=== PATIENT | female | born 1975 | race Caucasian/White ===

== ENCOUNTER 2016-11-17 14:17 | Day surgery (SDC) | payer OTHER ==
[~2016-11-17 14:17] MED LIST: DIPRIVAN 200 MG/20 ML IV ONE; Kenalog-40 IM ONE; Lactated Ringers 1,000 ML IV ONE; Sensorcaine 0.25% 10 ML IJ ONE
[2016-11-17] MEDS ORDERED: XYLOCAINE 1% HCL 20 ML MDV ONE (16:33)
--- NOTE | 2016-11-17 19:05 | XRAY ---
Indication: Right SI injection. Intraoperative fluoroscopy was provided for 22 seconds. Single digital spot image submitted for interpretation demonstrates posterior spinal needle with the tip projecting over the upper right SI joint. Small amount of contrast injected for needle tip placement. Correlate with intraoperative findings/report.
--- NOTE | 2016-11-18 08:42 | XRAY ---
22 seconds fluoroscopy time in surgery for right SI injection.
== END 2016-11-17 17:15 | disposition home or self-care (01) ==
LOC: SDC-PAIN 14:17
PROVIDERS: ATTEND Pain Medicine Interventional Pain Medicine
DX: M46.1 Sacroiliitis, not elsewhere classified (principal); M45.5 Ankylosing spondylitis of thoracolumbar region; M25.559 Pain in unspecified hip; Z79.891 Long term (current) use of opiate analgesic
CPT/HCPCS: 01992; 27096; 72020; 77003; J2704; J3301

== ENCOUNTER 2016-12-21 18:28 | Emergency (ER) | payer OTHER ==
[2016-12-21] MEDS ORDERED: Sodium Chloride 0.9% 1000 ML 1,000 ML IV STA (19:10)
--- NOTE | 2016-12-21 19:16 | ERPHSYRPT ---
- History of Present Illness Time Seen by Provider: 12/21/16 19:00 Historian: patient Exam Limitations: clinical condition Patient Subjective Stated Complaint: patient has hx of ovarian cysts, having abdominal pain accross abdomen Triage Nursing Assessment: patient alert and oriented x3, bowel sounds x4, and abdominal pain accross abdomin , called OB and she advised patietn come in to ER Physician History: PATIENT WITH HISTORY OR OVARIAN CYST COMPLAINS OF GENERALIZED ABDOMINAL CRAMPS FOR 1 MONTH ASSOCIATED WITH NAUSEA. DENIES EMESIS, VAGINAL DISCHARGE OR BLEEDING OR DIARRHEA. HAS NO RELIEF WITH NORCO 5/325 EVERY 6 HOURS. AWAITING ENDOMETRIAL BIOPSY PER EDGER MACHINE OPERATOR. Timing/Duration: week(s) Activities at Onset: none Quality: cramping Abdominal Pain Onset Location: generalized abdomen Pain Radiation: no radiation Severity of Pain-Max: moderate Severity of Pain-Current: moderate Modifying Factors: Improves With: other (NAUSEA) Associated Symptoms: nausea Previous symptoms: same symptoms as today Allergies/Adverse Reactions: hydroxychloroquine sulfate [From Plaquenil] Allergy (Intermediate, Verified 10:27) Rash methotrexate Allergy (Intermediate, Verified 03/17/16 10:27) Rash tramadol Allergy (Intermediate, Verified 03/17/16 10:27) Hives Home Medications: Omeprazole 20 MG [Prilosec 20 mg] 40 mg PO BID 02/29/16 [History] Adalimumab [Humira] 40 mg SQ .2X/WEEK 07/27/16 [History] Hydrocodone Bit/Acetaminophen [Souris 5/325Mg] 1 each PO TIDPRN PRN 07/27/16 [ History] Linaclotide [Linzess] 145 mcg PO .PRN 07/27/16 [History] Hx Tetanus, Diphtheria Vaccination/Date Given: Yes Hx Influenza Vaccination/Date Given: No Hx Pneumococcal Vaccination/Date Given: No Immunizations Up to Date: Yes - Review of Systems Constitutional: No Fever, No Chills Eyes: No Symptoms Ears, Nose, & Throat: No Symptoms Respiratory: No Symptoms, No Cough, No Dyspnea Cardiac: No Chest Pain, No Edema, No Syncope Abdominal/Gastrointestinal: Abdominal Pain, Nausea, No Vomiting, No Diarrhea Genitourinary Symptoms: No Symptoms, No Dysuria Musculoskeletal: No Symptoms, No Back Pain, No Neck Pain Skin: No Symptoms, No Rash Neurological: No Dizziness, No Focal Weakness, No Sensory Changes Psychological: No Symptoms Endocrine: No Symptoms All Other Systems: Reviewed and Negative - Past Medical History Pertinent Past Medical History: Yes Neurological History: Migraines Cardiac History: Other Respiratory History: Asthma Endocrine Medical History: No Pertinent History Musculoskeletal History: Rheumatoid Arthritis GI Medical History: Diverticulitis Other Medical History: HEART MURMUR - Past Surgical History Past Surgical History: Yes Gastrointestinal: Cholecystectomy Female Surgical History: Tubal Ligation Other Surgical History: ECTOPIC PREG - Social History Smoking Status: Never smoker Exposure to second hand smoke: No Drug Use: none Patient Lives Alone: No - Nursing Vital Signs Nursing Vital Signs: Initial Vital Signs Temperature 97.7 F Temperature Source Oral Pulse Rate 68 Respiratory Rate 16 Blood Pressure [Right Arm] 119/48 Pain Intensity 7 - Physical Exam General Appearance: no apparent distress, alert Eye Exam: PERRL/EOMI, eyes nml inspection Ears, Nose, Throat Exam: normal ENT inspection, pharynx normal, moist mucous membranes Neck Exam: normal inspection, non-tender, supple, full range of motion Respiratory Exam: normal breath sounds, lungs clear, No respiratory distress Cardiovascular Exam: regular rate/rhythm, normal heart sounds Gastrointestinal/Abdomen Exam: soft, normal bowel sounds, tenderness (MINIMAL PERIUMBILICAL TENDERNESS, SUPRAPUBIC TENDERNESS), No mass Back Exam: normal inspection, normal range of motion, No CVA tenderness, No vertebral tenderness Extremity Exam: normal inspection, normal range of motion, pelvis stable Neurologic Exam: alert, oriented x 3, cooperative, normal mood/affect, nml cerebellar function, sensation nml, No motor deficits Skin Exam: normal color, warm, dry SpO2 Interpretation: normal SpO2: 98 Oxygen Delivery: Room Air - CT Exams Abdomen/Pelvis CT Interpretation: Tele-radiologist Report (THERE IS A 3.3CM RIGHT OVARIAN CYST , NO FREE AIR, NO FLUID COLLECTION) Ordered Tests: Active Orders 24 hr Category Date Time Status IV Insertion STAT Care 12/21/16 19:10 Active ABDOMEN AND PELVIS W CONTRAST [CT] Stat Exams 12/21/16 19:11 Taken AMYLASE Stat Lab 12/21/16 19:23 Completed BMP Stat Lab 12/21/16 19:23 Completed CBC W DIFF Stat Lab 12/21/16 19:23 Completed LIPASE Stat Lab 12/21/16 19:23 Completed Urine Triage Profile Stat Lab 12/21/16 19:10 Ordered Medication Summary Discontinued Medications Generic Name Dose Route Start Last Admin Trade Name Jody PRN Reason Stop Dose Admin Sodium Chloride 1,000 mls @ 500 mls/hr 12/21/16 19:10 12/21/16 19:29 Sodium Chloride 0.9% 1000 Ml IV 12/21/16 21:09 500 mls/hr .Q2H STA Administration Sodium Chloride Confirm 12/21/16 19:20 Sodium Chloride 0.9% 1000 Ml Administered 12/21/16 19:21 Dose 1,000 mls @ ud .ROUTE .STK-MED ONE Ketorolac Tromethamine 30 mg 12/21/16 20:13 12/21/16 20:16 Toradol 30 Mg Injection IV 12/21/16 20:14 30 mg STAT ONE Administration Ketorolac Tromethamine Confirm 12/21/16 20:16 Toradol 30 Mg Injection Administered 12/21/16 20:17 Dose 30 mg .ROUTE .STK-MED ONE Ondansetron HCl 4 mg 12/21/16 20:13 12/21/16 20:17 Zofran 4 Mg/2 Ml Vial IV 12/21/16 20:14 4 mg STAT ONE Administration Ondansetron HCl Confirm 12/21/16 20:15 Zofran 4 Mg/2 Ml Vial Administered 12/21/16 20:16 Dose 4 mg .ROUTE .STK-MED ONE Lab/Rad Data: Laboratory Result Diagrams 12/21/16 19:23 12/21/16 19:23 Laboratory Results 12/21/16 12/21/16 12/21/16 Range/Units 19:23 19:23 19:23 WBC 7.7 (4.0-10.5) K/mm3 RBC 4.05 L (4.1-5.4) M/mm3 Hgb 12.7 (12.0-16.0) gm/dl Hct 38.3 (35-47) % MCV 94.6 (78-100) fl MCH 31.3 (26-32) pg MCHC 33.2 (32-36) g/dl RDW 12.9 (11.5-14.0) % Plt Count 274 (150-450) K/mm3 MPV 9.5 (6-9.5) fl Gran % 52.9 (36.0-66.0) % Lymphocytes % 35.3 (24.0-44.0) % Monocytes % 7.4 (0.0-12.0) % Eosinophils % 4.0 (0.00-5.0) % Basophils % 0.4 (0.0-0.4) % Basophils # 0.03 (0-0.4) Sodium 143 (136-145) mEq/L Potassium 3.8 (3.5-5.1) mEq/L Chloride 107 (98-107) mEq/L Carbon Dioxide 28.3 (21-32) mEq/L Anion Gap 11.2 (5-15) MEQ/L BUN 13 (9-20) mg/dL Creatinine 0.78 (0.55-1.30) mg/dl Estimated GFR > 60 ML/MIN Glucose 112 H (70-110) MG/DL Calcium 9.0 (8.5-10.1) mg/dL Amylase 29 (25-115) U/L Lipase 94 (73-393) U/L - Progress Progress: pain not gone completely Counseled pt/family regarding: lab results, diagnosis, need for follow-up, rad results - Departure Time of Disposition: 21:26 Departure Disposition: Home Clinical Impression: RIGHT OVARIAN CYST Condition: Stable Critical Care Time: No Additional Instructions: CONTINUE NORCO FOR PAIN DIRECTED AND ZOFRAN 4MG EVERY 4 HOURS FOR NAUSEA NEEDED. FOLLOWUP WITH YOUR EDGER MACHINE OPERATOR SCHEDULED.
[2016-12-21] MEDS ORDERED: Sodium Chloride 0.9% 1000 ML 1,000 ML ONE (19:20)
[2016-12-21 19:39] LABS: BASOPHIL % 0.4 % (0.0-0.4); Granulocytes % 52.9 % (36.0-66.0); Lymphocytes % 35.3 % (24.0-44.0); Mean Cell Volume 94.6 fl (78-100); Mean Corpuscular Hemoglobin 31.3 pg (26-32); Mean Platelet Volume 9.5 fl (6-9.5); Monocytes % 7.4 % (0.0-12.0); Platelet Count 274 K/mm3 (150-450); Red Blood Count 4.05 M/mm3 (4.1-5.4); Red Cell Distribution Width 12.9 % (11.5-14.0); White Blood Count 7.7 K/mm3 (4.0-10.5)
[2016-12-21 20:01] LABS: ANION GAP 11.2 MEQ/L (5-15); BLOOD UREA NITROGEN 13 mg/dL (9-20); CHLORIDE 107 mEq/L (98-107); Carbon Dioxide 28.3 mEq/L (21-32); Glucose 112 MG/DL (70-110); Potassium 3.8 mEq/L (3.5-5.1); SODIUM 143 mEq/L (136-145)
[2016-12-21 20:03] LABS: LIPASE 94 U/L (73-393)
[2016-12-21] MEDS ORDERED: Zofran 4 MG/2 ML VIAL IV ONE (20:13)
[2016-12-21] MEDS ORDERED: TORAdol 30 mg Injection IV ONE (20:13)
[2016-12-21] MEDS ORDERED: Zofran 4 MG/2 ML VIAL ONE (20:15)
[2016-12-21] MEDS ORDERED: TORAdol 30 mg Injection ONE (20:16)
[2016-12-21 21:29] VITALS: O2SAT 98
[2016-12-21 22:17] VITALS: BP 140/84; PULSE 60
--- NOTE | 2016-12-22 12:29 | XRAY ---
Exam: CT of the abdomen and pelvis with IV contrast from 12/21/2016. Comparison: None. Indication: Generalized mid abdominal pain, history of prior cholecystectomy and tubal ligation, past history of diverticulitis and ovarian cysts. Technique: Post-IV contrast axial images were obtained through the abdomen and pelvis during automated injection of 80 ML's of Isovue 370 contrast material. Reconstructed coronal and sagittal images were created and reviewed. Findings: The lung bases reveal a tiny 3 mm nodular density at the lateral right lung base within the mid axillary line on axial image #1. This is nonspecific. In addition, within the posterior lateral left lower lobe a bit more inferiorly, there is a 5 mm in diameter nonspecific soft tissue lung nodule. The remainder of the lung bases appears clear. There is a minimal hiatal hernia. The liver and spleen appear unremarkable. Surgical clips consistent with prior cholecystectomy are seen. No biliary duct distention is seen. The pancreas and adrenal glands appear unremarkable. I cannot exclude a minimal duodenal diverticulum to the right of midline on axial image #28. This is nonspecific. The kidneys reveal no suspicious calcifications, hydronephrosis, or renal mass. The kidneys function well on delayed images. The abdominal aorta appears of normal diameter. No abnormal retroperitoneal or mesenteric lymphadenopathy is seen. No free intraperitoneal air is seen. The anterior abdominal wall reveals no evidence of ventral hernia. I see no bowel distention or bowel wall thickening. Moderate scattered colonic stool is seen. The appendix is not definitely seen within the right lower quadrant. However, I see no secondary findings to suggest acute appendicitis. The pelvis reveals an anteflexed uterus tilted to the right of midline. A 3.5 cm x 2.8 cm right ovarian cyst is seen. The left ovary appears unremarkable. I see no free intraperitoneal fluid or abnormal pelvic lymph nodes. Minimal sigmoid colon diverticulosis without evidence of acute diverticulitis is seen. The urinary bladder appears unremarkable. The skeleton reveals no acute fracture or suspicious bone lesions. Impression: 1. I see a 3.5 cm in diameter right ovarian cyst. No free intraperitoneal fluid is seen. 2. No acute intra-abdominal or pelvic process is seen. 3. Minimal sigmoid colon diverticulosis without evidence of diverticulitis. Moderate scattered colonic stool is seen. 4. Status post cholecystectomy. 5. 5 mm soft tissue nodule at posterior lateral aspect of left lower lobe and 3 mm soft tissue nodule at lateral right lung base within mid axillary line, as described above. These findings are nonspecific. In a low risk individual, the new 2017 [employer] guidelines for pulmonary nodules would suggest no follow-up in a low risk individual because of the nodule size under 6 mm in diameter. It the patient is at increased risk, a follow-up CT of the chest would be advised in 12 months. 6. Minimal hiatal hernia.
== END 2016-12-21 21:55 | disposition home or self-care (01) ==
LOC: ED 18:28
DX: N83.201 Unspecified ovarian cyst, right side (principal); R10.9 Unspecified abdominal pain; R11.0 Nausea; Z79.899 Other long term (current) drug therapy
CPT/HCPCS: 36000; 36415; 74177; 80048; 82150; 83690; 85025; 96360; 96374; 96375; 99284; J1885; J2405

== ENCOUNTER 2017-02-02 14:28 | Emergency (ER) | payer OTHER ==
[2017-02-02] MEDS ORDERED: Zofran 4 MG/2 ML VIAL IV ONE (14:47)
[2017-02-02] MEDS ORDERED: TYLENOL 325 MG PO STA (14:47)
[2017-02-02] MEDS ORDERED: LEVOFLOXACIN 750MG/150ML D5W 750 MG/150 ML BAG IV STA (14:47)
[2017-02-02] MEDS ORDERED: Zofran 4 MG/2 ML VIAL ONE (14:53)
[2017-02-02] MEDS ORDERED: TYLENOL 325 MG ONE (14:53)
[2017-02-02] MEDS ORDERED: LEVOFLOXACIN 750MG/150ML D5W 750 MG/150 ML BAG IV ONE (14:53)
[2017-02-02] MEDS ORDERED: Sodium Chloride 0.9% 1000 ML 1,000 ML ONE (14:53)
[2017-02-02] MEDS ORDERED: Sodium Chloride 0.9% 1000 ML 1,000 ML IV SCH (15:00)
--- NOTE | 2017-02-02 15:14 | XRAY ---
Exam: AP upright portable chest film from 1450 hrs. on 02/02/2017. Comparison: None. Indication: Fever, possible sepsis. Findings: The heart size and contour are normal. The jasmina and mediastinal structures appear unremarkable. The lungs are adequately inflated. There is at least one tiny calcified granuloma within the right midlung field. I see no air space infiltrates, vascular congestion, pneumothorax, or pleural fluid. The visualized bones appear unremarkable. Impression: 1. No infiltrates to suggest focal pneumonia or other acute cardiopulmonary disease is seen.
[2017-02-02 15:21] LABS: BASOPHIL % 0.1 % (0.0-0.4); Eosinophil % 0.6 % (0.00-5.0); Granulocytes % 85.6 % (36.0-66.0); Lymphocytes % 7.1 % (24.0-44.0); Mean Cell Volume 91.8 fl (78-100); Mean Corpuscular Hemoglobin 32.2 pg (26-32); Mean Platelet Volume 9.3 fl (6-9.5); Monocytes % 6.6 % (0.0-12.0); Platelet Count 184 K/mm3 (150-450); Red Blood Count 4.03 M/mm3 (4.1-5.4); Red Cell Distribution Width 12.6 % (11.5-14.0); White Blood Count 10.7 K/mm3 (4.0-10.5)
[2017-02-02 15:32] LABS: INR 1.14 (0.8-3.0); PROTIME 12.9 SECONDS (9.95-12.35)
[2017-02-02 15:35] LABS: Bilirubin NEGATIVE (NEGATIVE); Blood NEGATIVE Ery/ul (0-5); COMPLETE URINE MICROSCOPIC? NO; Collection Type VOID; Glucose NEGATIVE (NEGATIVE); Leukocyte Esterase NEGATIVE (NEGATIVE)
[2017-02-02 15:50] VITALS: BP 143/75
[2017-02-02 15:50] LABS: ALBUMIN 3.4 g/dL (3.4-5.0); ALKALINE PHOSPHATASE 55 U/L (46-116); BLOOD UREA NITROGEN 11 mg/dL (9-20); CHLORIDE 105 mEq/L (98-107); Carbon Dioxide 21.8 mEq/L (21-32); Glucose 96 MG/DL (70-110); Potassium 3.5 mEq/L (3.5-5.1); SGOT/AST 14 U/L (15-37); SODIUM 137 mEq/L (136-145); Total Protein 6.6 gm/dL (6.4-8.2)
[2017-02-02 16:11] LABS: SGPT/ALT 15 U/L (12-78)
[2017-02-02] MEDS ORDERED: Hydromorphone 1 mg/ml Ampule IV ONE (16:37)
--- NOTE | 2017-02-02 16:37 | ERPHSYRPT ---
- History of Present Illness Time Seen by Provider: 02/02/17 15:00 Historian: patient Exam Limitations: clinical condition Patient Subjective Stated Complaint: PT REPORTS FEVER OF 102.5 LAST NIGHT- STATES SHE ACHES ALL OVER-DENEIS N/V/D-DENIES COUGH-DENIES DIFFICULTY WITH URIANTION OR BOWELS Triage Nursing Assessment: PT PINK FLUSHED WARM ET DRY UPON ARRIVAL-NO COUGH NOTED DURING TRIAGE-LUNGS CLEAR ET EQUAL BILATERALLY-RESP EASY ET NONLABORED- ABD SOFT ET TENDER TO PALP Physician History: PATIENT WITH HISTORY OR RHEUMATOID ARTHRITIS COMPLAINS OF ONSET OF FEVER LAST NIGHT, ASSOCIATED WITH ABDOMINAL CRAMPS. HAS ASSOCIATED FEVER AND NAUSEA. DENIES EMESIS OR DIARRHEA. Timing/Duration: day(s) Activities at Onset: none Abdominal Pain Onset Location: RLQ, LLQ Pain Radiation: no radiation Severity of Pain-Max: moderate Severity of Pain-Current: moderate Associated Symptoms: nausea Previous symptoms: no prior history Allergies/Adverse Reactions: hydroxychloroquine sulfate [From Plaquenil] Allergy (Intermediate, Verified 07/10 14:37) Rash methotrexate Allergy (Intermediate, Verified 02/02/17 14:37) Rash tramadol Allergy (Intermediate, Verified 02/02/17 14:37) Hives ketorolac [From Toradol] Allergy (Verified 02/02/17 14:37) Home Medications: Omeprazole 20 MG [Prilosec 20 mg] 40 mg PO BID 02/29/16 [History] Adalimumab [Humira] 40 mg SQ .2X/WEEK 07/27/16 [History] Linaclotide [Linzess] 145 mcg PO .PRN 07/27/16 [History] Hx Tetanus, Diphtheria Vaccination/Date Given: Yes Hx Influenza Vaccination/Date Given: No Hx Pneumococcal Vaccination/Date Given: No Immunizations Up to Date: Yes - Review of Systems Constitutional: No Fever, No Chills Eyes: No Symptoms Ears, Nose, & Throat: No Symptoms Respiratory: No Symptoms, No Cough, No Dyspnea Cardiac: No Chest Pain, No Edema, No Syncope Abdominal/Gastrointestinal: No Abdominal Pain, No Nausea, No Vomiting, No Diarrhea Genitourinary Symptoms: No Dysuria Musculoskeletal: Joint Pain, Joint Swelling, No Back Pain, No Neck Pain Skin: No Symptoms, No Rash Neurological: No Dizziness, No Focal Weakness, No Sensory Changes Psychological: No Symptoms Endocrine: No Symptoms All Other Systems: Reviewed and Negative - Past Medical History Pertinent Past Medical History: Yes Neurological History: Migraines Cardiac History: Other Respiratory History: Asthma Endocrine Medical History: No Pertinent History Musculoskeletal History: Rheumatoid Arthritis GI Medical History: Diverticulitis Other Medical History: HEART MURMUR - Past Surgical History Past Surgical History: Yes Gastrointestinal: Cholecystectomy Female Surgical History: Tubal Ligation Other Surgical History: ECTOPIC PREG - Social History Smoking Status: Never smoker Exposure to second hand smoke: No Drug Use: none Patient Lives Alone: No - Female History Hx Last Menstrual Period: JANUARY 08 2017 - Nursing Vital Signs Nursing Vital Signs: Initial Vital Signs Temperature 99.2 F Temperature Source Oral Pulse Rate 83 Respiratory Rate 20 Blood Pressure [Right Arm] 143/75 Pain Intensity 7 - Physical Exam SpO2: 98 Oxygen Delivery: Room Air Ordered Tests: Active Orders 24 hr Category Date Time Status Plumbing Manager STAT Care 02/02/17 14:47 Active Clean Catch Urine Specimen STAT Care 02/02/17 14:47 Active EKG-ER Only STAT Care 02/02/17 14:47 Active IV Insertion STAT Care 02/02/17 14:47 Active Oxygen-ED Only NASAL CANNULA 2 lpm Care 02/02/17 14:47 Active Pulse Oximetry (ED) STAT Care 02/02/17 14:47 Active ABDOMEN AND PELVIS W CONTRAST [CT] Stat Exams 02/02/17 15:34 Completed CHEST 1 VIEW (PORTABLE) Stat Exams 02/02/17 14:48 Completed AMYLASE Stat Lab 02/02/17 15:10 Completed BLOOD CULTURE Stat Lab 02/02/17 14:40 Received CBC W DIFF Stat Lab 02/02/17 15:10 Completed CMP Stat Lab 02/02/17 15:10 Completed CULTURE,URINE Stat Lab 02/02/17 15:05 Received HCG,QUALITATIVE URINE Stat Lab 02/02/17 15:05 Completed LIPASE Stat Lab 02/02/17 15:10 Completed Lactic Acid Stat Lab 02/02/17 14:48 Completed PROTIME WITH INR Stat Lab 02/02/17 15:10 Completed UA Stat Lab 02/02/17 15:05 Completed Medication Summary Generic Name Dose Route Start Last Admin Trade Name Freq PRN Reason Stop Dose Admin Sodium Chloride 1,000 mls @ 999 mls/hr 02/02/17 15:00 02/02/17 15:00 Sodium Chloride 0.9% 1000 Ml IV 02/02/17 17:00 999 mls/hr .Q1H1M NEFTALI Administration Discontinued Medications Generic Name Dose Route Start Last Admin Trade Name Jody PRN Reason Stop Dose Admin Acetaminophen 650 mg 02/02/17 14:47 02/02/17 15:02 Tylenol 325 Mg PO 02/02/17 14:48 650 mg STAT STA Administration Acetaminophen Confirm 02/02/17 14:53 Tylenol 325 Mg Administered 02/02/17 14:54 Dose 650 mg .ROUTE .STK-MED ONE Hydromorphone HCl 1 mg 02/02/17 16:37 02/02/17 16:43 Hydromorphone 1 Mg/Ml Ampule IV 02/02/17 16:38 1 mg STAT ONE Administration Hydromorphone HCl Confirm 02/02/17 16:39 Hydromorphone 1 Mg/Ml Ampule Administered 02/02/17 16:40 Dose 1 mg .ROUTE .STK-MED ONE Levofloxacin/Dextrose 750 mg in 150 mls @ 100 mls/hr 02/02/17 14:47 02/02/17 15:02 Levofloxacin 750mg/150ml D5w IV 02/02/17 16:16 100 mls/hr STAT STA Administration Levofloxacin/Dextrose Confirm 02/02/17 14:53 Levofloxacin 750mg/150ml D5w Administered 02/02/17 14:54 Dose 750 mg in 150 mls @ ud IV .STK-MED ONE Ondansetron HCl 4 mg 02/02/17 14:47 02/02/17 15:01 Zofran 4 Mg/2 Ml Vial IV 02/02/17 14:48 4 mg STAT ONE Administration Ondansetron HCl Confirm 02/02/17 14:53 Zofran 4 Mg/2 Ml Vial Administered 02/02/17 14:54 Dose 4 mg .ROUTE .STK-MED ONE Lab/Rad Data: Laboratory Result Diagrams 02/02/17 15:10 02/02/17 15:10 Laboratory Results 02/02/17 02/02/17 02/02/17 Range/Units 15:10 15:10 15:10 WBC (4.0-10.5) K/mm3 RBC (4.1-5.4) M/mm3 Hgb (12.0-16.0) gm/dl Hct (35-47) % MCV (78-100) fl MCH (26-32) pg MCHC (32-36) g/dl RDW (11.5-14.0) % Plt Count (150-450) K/mm3 MPV (6-9.5) fl Gran % (36.0-66.0) % Lymphocytes % (24.0-44.0) % Monocytes % (0.0-12.0) % Eosinophils % (0.00-5.0) % Basophils % (0.0-0.4) % Basophils # (0-0.4) INR 1.14 (0.8-3.0) Sodium (136-145) mEq/L Potassium (3.5-5.1) mEq/L Chloride (98-107) mEq/L Carbon Dioxide (21-32) mEq/L Anion Gap (5-15) MEQ/L BUN (9-20) mg/dL Creatinine (0.55-1.30) mg/dl Estimated GFR ML/MIN Glucose (70-110) MG/DL Lactic Acid (0.4-2.0) Calcium (8.5-10.1) mg/dL Total Bilirubin (0.2-1.0) mg/dL AST (15-37) U/L ALT (12-78) U/L Alkaline Phosphatase (46-116) U/L Serum Total Protein (6.4-8.2) gm/dL Albumin (3.4-5.0) g/dL Amylase 20 L (25-115) U/L Lipase 90 (73-393) U/L Ur Collection Type Urine Color (YELLOW) Urine Appearance (CLEAR) Urine pH (5-6) Ur Specific Rombauer (1.005-1.025) Urine Protein (Negative) Urine Ketones (NEGATIVE) Urine Blood (0-5) Pramod/ul Urine Nitrite (NEGATIVE) Urine Bilirubin (NEGATIVE) Urine Urobilinogen (0-1) mg/dL Ur Leukocyte Esterase (NEGATIVE) Urine Glucose (NEGATIVE) mg/dL Urine HCG, Qual (Negative) Specimen Received 02/02/17 02/02/17 02/02/17 Range/Units 15:10 15:10 15:05 WBC 10.7 H (4.0-10.5) K/mm3 RBC 4.03 L (4.1-5.4) M/mm3 Hgb 13.0 (12.0-16.0) gm/dl Hct 37.0 (35-47) % MCV 91.8 (78-100) fl MCH 32.2 H (26-32) pg MCHC 35.1 (32-36) g/dl RDW 12.6 (11.5-14.0) % Plt Count 184 (150-450) K/mm3 MPV 9.3 (6-9.5) fl Gran % 85.6 H (36.0-66.0) % Lymphocytes % 7.1 L (24.0-44.0) % Monocytes % 6.6 (0.0-12.0) % Eosinophils % 0.6 (0.00-5.0) % Basophils % 0.1 (0.0-0.4) % Basophils # 0.01 (0-0.4) INR (0.8-3.0) Sodium 137 (136-145) mEq/L Potassium 3.5 (3.5-5.1) mEq/L Chloride 105 (98-107) mEq/L Carbon Dioxide 21.8 (21-32) mEq/L Anion Gap 14.0 (5-15) MEQ/L BUN 11 (9-20) mg/dL Creatinine 0.94 (0.55-1.30) mg/dl Estimated GFR > 60 ML/MIN Glucose 96 (70-110) MG/DL Lactic Acid (0.4-2.0) Calcium 8.4 L (8.5-10.1) mg/dL Total Bilirubin 0.90 (0.2-1.0) mg/dL AST 14 L (15-37) U/L ALT 15 (12-78) U/L Alkaline Phosphatase 55 (46-116) U/L Serum Total Protein 6.6 (6.4-8.2) gm/dL Albumin 3.4 (3.4-5.0) g/dL Amylase (25-115) U/L Lipase (73-393) U/L Ur Collection Type VOID Urine Color YELLOW (YELLOW) Urine Appearance CLEAR (CLEAR) Urine pH 7.0 (5-6) Ur Specific Rombauer 1.010 (1.005-1.025) Urine Protein NEGATIVE (Negative) Urine Ketones MODERATE (NEGATIVE) Urine Blood NEGATIVE (0-5) Pramod/ul Urine Nitrite NEGATIVE (NEGATIVE) Urine Bilirubin NEGATIVE (NEGATIVE) Urine Urobilinogen NORMAL (0-1) mg/dL Ur Leukocyte Esterase NEGATIVE (NEGATIVE) Urine Glucose NEGATIVE (NEGATIVE) mg/dL Urine HCG, Qual (Negative) Specimen Received 02/02/17 1505 02/02/17 02/02/17 Range/Units 15:05 14:48 WBC (4.0-10.5) K/mm3 RBC (4.1-5.4) M/mm3 Hgb (12.0-16.0) gm/dl Hct (35-47) % MCV (78-100) fl MCH (26-32) pg MCHC (32-36) g/dl RDW (11.5-14.0) % Plt Count (150-450) K/mm3 MPV (6-9.5) fl Gran % (36.0-66.0) % Lymphocytes % (24.0-44.0) % Monocytes % (0.0-12.0) % Eosinophils % (0.00-5.0) % Basophils % (0.0-0.4) % Basophils # (0-0.4) INR (0.8-3.0) Sodium (136-145) mEq/L Potassium (3.5-5.1) mEq/L Chloride (98-107) mEq/L Carbon Dioxide (21-32) mEq/L Anion Gap (5-15) MEQ/L BUN (9-20) mg/dL Creatinine (0.55-1.30) mg/dl Estimated GFR ML/MIN Glucose (70-110) MG/DL Lactic Acid 1.1 (0.4-2.0) Calcium (8.5-10.1) mg/dL Total Bilirubin (0.2-1.0) mg/dL AST (15-37) U/L ALT (12-78) U/L Alkaline Phosphatase (46-116) U/L Serum Total Protein (6.4-8.2) gm/dL Albumin (3.4-5.0) g/dL Amylase (25-115) U/L Lipase (73-393) U/L Ur Collection Type Urine Color (YELLOW) Urine Appearance (CLEAR) Urine pH (5-6) Ur Specific Rombauer (1.005-1.025) Urine Protein (Negative) Urine Ketones (NEGATIVE) Urine Blood (0-5) Pramod/ul Urine Nitrite (NEGATIVE) Urine Bilirubin (NEGATIVE) Urine Urobilinogen (0-1) mg/dL Ur Leukocyte Esterase (NEGATIVE) Urine Glucose (NEGATIVE) mg/dL Urine HCG, Qual NEGATIVE (Negative) Specimen Received - Progress Progress Note: 02/02/17 16:48 PATIENT INITALLY PLACED ONTO SEPSIS PROTOCOL BOLUS 6IKG/30ML-2LITER BOLUS OVER 2 HOURS, AFTER 2 SETS OF BLOOD CULTURE OBTAINED, LEVAQIN 750MG IBVPB MDM DEVELOPER. ZOFRAN 4MG, DILAUDID 1MG IV, THE LACTIC ACID IS 1.1 Counseled pt/family regarding: lab results, diagnosis, need for follow-up - Departure Time of Disposition: 17:34 Departure Disposition: Home Clinical Impression: ABDOMINAL PAIN Condition: Stable Critical Care Time: No Additional Instructions: FOLLOWUP WITH YOUR FAMILY PHYSICIAN FOR REFERRAL TO HEALTH INSURANCE ASSESSOR FOR EVALUATION OF PELVIC RELAXATION. ZOFRAN 4MG EVERY 4 HOURS FOR NAUSEA. NORCO 10/325 EVERY 4 HOURS FOR PAIN. Prescriptions: Hydrocodone/APAP 10/325 mg [[place] 10/325 MG Tablet] 1 tab PO Q4H PRN PRN # 15 tablet PRN Reason: Pain Ondansetron [Zofran Odt] 4 mg PO Q4H PRN PRN #6 tab.rapdis PRN Reason: Nausea
[2017-02-02] MEDS ORDERED: Hydromorphone 1 mg/ml Ampule ONE (16:39)
--- NOTE | 2017-02-02 17:01 | XRAY ---
Exam: CT of the abdomen and pelvis with IV contrast from 02/02/2017. CTDI: 14.21 Comparison: CT of the abdomen and pelvis with IV contrast from 12/21/2016. Indication: Lower abdominal pain and cramping for 3 months, fever Technique: Post-IV contrast axial images were obtained through the abdomen and pelvis during automated injection of 80 cc of Isovue-370 contrast material. Reconstructed coronal and sagittal images were created and reviewed. No oral contrast was given. Findings: The lung bases are remarkable for 5.5 mm stable nodule within the posterior lateral left lung base on axial image #6 of series #2. The other tiny nodule within the mid axillary line of the right lung base on 12/21/2016 has not been included on this study. The remainder the lung bases appears clear. I again identify a small hiatal hernia. The liver appears normal. Surgical clips consistent with prior cholecystectomy are seen. No biliary duct distention is seen. The spleen appears of normal size without mass. The pancreas and adrenal glands appear normal. The kidneys reveal no mass, suspicious calcifications, or hydronephrosis. On sagittal image #66 there is a small predominantly fat-containing umbilical hernia. No other ventral hernia is seen. The abdominal aorta is of normal diameter. No abnormal retroperitoneal lymphadenopathy is seen. No free air is seen. The bowel appears of normal diameter. Scattered stool is seen throughout the colon. Mild sigmoid colon diverticulosis without evidence of acute diverticulitis is again seen. I see no findings of appendicitis within the right lower quadrant. The uterus is anteflexed and tilted mildly toward the right. Previously noted 3.5 cm in diameter right ovarian cyst is no longer seen, although I do note some small right ovarian follicles which measure a maximum of 9 mm in diameter. The left ovary is identified and appears normal. The pelvic sidewalls appear normal. No enlarged pelvic lymph nodes or free fluid is seen. The urinary bladder appears unremarkable. The skeleton reveals no acute fracture or aggressive bone lesion. Impression: 1. No acute intra-abdominal or pelvic process is seen. 2. Prior 3.5 cm in diameter right ovarian cyst has resolved, although I do note several small subcentimeter follicles within the right ovary. The left ovary appears unremarkable. 3. I see no findings of acute appendicitis within the right lower quadrant. 4. Mild sigmoid colon diverticulosis without evidence of acute diverticulitis. This is unchanged from 12/21/2016. 5. Small fat-containing umbilical hernia. 6. Status post cholecystectomy. 7. Small stable hiatal hernia. 8. 5.5 mm soft tissue nodule at posterior lateral left lung base. The 2017 Fleischner Society guidelines for pulmonary nodules states that it the patient is at high risk, a follow-up CT of the chest in 1 year for monitoring would be advised.
[2017-02-02 17:15] VITALS: PULSE 83
[2017-02-02 17:37] VITALS: O2SAT 98
== END 2017-02-02 17:41 | disposition home or self-care (01) ==
LOC: ED 14:28
DX: R10.31 Right lower quadrant pain (principal); R10.32 Left lower quadrant pain; R50.9 Fever, unspecified; R11.0 Nausea
CPT/HCPCS: 36000; 36415; 71010; 74177; 80053; 81002; 82150; 83605; 83690; 84703; 85025; 85610; 87040; 87086; 93005; 93041; 96360; 96365; 96374; 96375; 99284; J1170; J1956; J2405; A9270-GY

== ENCOUNTER 2017-05-03 16:17 | Emergency (ER) | payer OTHER ==
[2017-05-03] MEDS ORDERED: Sodium Chloride 0.9% 1000 ML 1,000 ML IV STA (16:58)
[2017-05-03] MEDS ORDERED: Vistaril 50 MG/ML IM ONE ×2 (16:59→17:08)
[2017-05-03] MEDS ORDERED: PERCOCET TABLET 5/325MG PO STA ×2 (16:59→17:49)
--- NOTE | 2017-05-03 17:06 | ERPHSYRPT ---
- History of Present Illness Time Seen by Provider: 05/03/17 16:21 Historian: patient Patient Subjective Stated Complaint: pt states she has had chronic pelvic pain for the past 4 months. states she has been seen for this pain several times. states pain became worse over the last few days. recently started on control to see if that would help. Triage Nursing Assessment: pt pink, warm dry. abdomen soft. tender in pelvis upon palpation. pt afebrile. Physician History: CC: abd pain Hx: 41y /o patient with primary care Dr Grant in [facility]. She has chronic abdominal pain/pelvic pain. She has seen multiple doctors and currently started OCP last week. She has appt with director of cardiology service line. She had prior cholecystectomy and both fallopian tubes removed. She has increased pelvis pain, a little different today. Some increased cramping. No vaginal bleeding. Normal urination. Workup has been extensive. She has had 10 pelvic exams, at least 3 CT scans this year, and a cystoscopy. No fever or chills. Allergies/Adverse Reactions: hydroxychloroquine sulfate [From Plaquenil] Allergy (Intermediate, Verified 05/10 16:34) Rash methotrexate Allergy (Intermediate, Verified 05/03/17 16:34) Rash tramadol Allergy (Intermediate, Verified 05/03/17 16:34) Hives ketorolac [From Toradol] Allergy (Verified 05/03/17 16:34) certolizumab pegol [From Cimzia] Adverse Reaction (Verified 05/03/17 16:34) simvastatin Adverse Reaction (Verified 05/03/17 16:34) Home Medications: Norgestimate-Ethinyl Estradiol [Kkt-Qv-Sgykgtrti Tablet] 1 each PO DAILY [History] Hx Tetanus, Diphtheria Vaccination/Date Given: Yes (up to date) Hx Influenza Vaccination/Date Given: No Hx Pneumococcal Vaccination/Date Given: No Immunizations Up to Date: Yes - Review of Systems Constitutional: No Fever, No Chills Eyes: No Symptoms Ears, Nose, & Throat: No Symptoms Respiratory: No Cough, No Dyspnea Cardiac: No Chest Pain Abdominal/Gastrointestinal: Abdominal Pain, No Vomiting, No Diarrhea Genitourinary Symptoms: No Dysuria Musculoskeletal: No Back Pain Skin: No Rash Neurological: No Headache All Other Systems: Reviewed and Negative - Past Medical History Pertinent Past Medical History: Yes Neurological History: Migraines Cardiac History: Other Respiratory History: Asthma Endocrine Medical History: No Pertinent History Musculoskeletal History: Rheumatoid Arthritis GI Medical History: Diverticulitis Other Medical History: HEART MURMUR - Past Surgical History Past Surgical History: Yes Gastrointestinal: Cholecystectomy Female Surgical History: Tubal Ligation Other Surgical History: ECTOPIC PREG - Social History Smoking Status: Never smoker Exposure to second hand smoke: Yes Drug Use: none Patient Lives Alone: No - Female History Hx Last Menstrual Period: 04/24/17 - Nursing Vital Signs Nursing Vital Signs: Initial Vital Signs Temperature 98.7 F 05/03/17 16:28 Pulse Rate 85 05/03/17 16:28 Respiratory Rate 18 05/03/17 16:28 Blood Pressure 132/46 05/03/17 16:28 O2 Sat by Pulse Oximetry 100 05/03/17 16:28 Pain Scale Pain Intensity 7 - Physical Exam General Appearance: alert Eye Exam: PERRL/EOMI Ears, Nose, Throat Exam: normal ENT inspection, moist mucous membranes Neck Exam: normal inspection, non-tender, supple Respiratory Exam: normal breath sounds Cardiovascular Exam: regular rate/rhythm Gastrointestinal/Abdomen Exam: soft, tenderness, other (some lower abd pain, no rebound, guarding, nor mass) Back Exam: normal inspection, normal range of motion Extremity Exam: normal inspection, normal range of motion Neurologic Exam: alert, oriented x 3, cooperative, account manager II-XII nml as tested, sensation nml, No motor deficits Skin Exam: warm, dry, No rash SpO2 Interpretation: normal SpO2: 100 Oxygen Delivery: Room Air - Course Nursing assessment & vital signs reviewed: Yes - Radiology Ultrasound Exam pelvic Ultrasound: Other (negative per RDMS. Normal flow, no dominant cyst, no abscess. ) Ordered Tests: Active Orders 24 hr Category Date Time Status Clean Catch Urine Specimen STAT Care 05/03/17 16:39 Active IV Insertion STAT Care 05/03/17 16:39 Active PELVIS TRANS VAGINAL [US] Stat Exams 05/03/17 16:58 Ordered CBC W DIFF Stat Lab 05/03/17 16:45 Completed CMP Stat Lab 05/03/17 16:45 Completed HCG QUALITATIVE,SERUM Stat Lab 05/03/17 16:45 Completed UA W/RFX UR CULTURE Stat Lab 05/03/17 16:45 Completed Medication Summary Generic Name Dose Route Start Last Admin Trade Name Freq PRN Reason Stop Dose Admin Sodium Chloride 1,000 mls @ 999 mls/hr 05/03/17 16:58 05/03/17 17:11 Sodium Chloride 0.9% 1000 Ml IV 05/03/17 17:58 999 mls/hr .Q1H1M STA Administration Discontinued Medications Generic Name Dose Route Start Last Admin Trade Name Jody PRN Reason Stop Dose Admin Hydroxyzine HCl 50 mg 05/03/17 16:59 05/03/17 17:11 Vistaril 50 Mg/Ml IM 05/03/17 17:00 50 mg STAT ONE Administration Hydroxyzine HCl Confirm 05/03/17 17:08 Vistaril 50 Mg/Ml Administered 05/03/17 17:09 Dose 50 mg IM .STK-MED ONE Sodium Chloride Confirm 05/03/17 17:08 Sodium Chloride 0.9% 1000 Ml Administered 05/03/17 17:09 Dose 1,000 mls @ ud .ROUTE .STK-MED ONE Oxycodone/Acetaminophen 1 tab 05/03/17 16:59 05/03/17 17:10 Percocet Tablet 5/325mg PO 05/03/17 17:00 1 tab STAT STA Administration Oxycodone/Acetaminophen Confirm 05/03/17 17:08 Percocet Tablet 5/325mg Administered 05/03/17 17:09 Dose 1 tab .ROUTE .STK-MED ONE Lab/Rad Data: Laboratory Result Diagrams 05/03/17 16:45 05/03/17 16:45 Laboratory Results 05/03/17 05/03/17 05/03/17 Range/Units 16:45 16:45 16:45 WBC 7.4 (4.0-10.5) K/mm3 RBC 4.01 L (4.1-5.4) M/mm3 Hgb 12.1 (12.0-16.0) gm/dl Hct 36.0 (35-47) % MCV 89.8 (78-100) fl MCH 30.1 (26-32) pg MCHC 33.6 (32-36) g/dl RDW 13.7 (11.5-14.0) % Plt Count 226 (150-450) K/mm3 MPV 10.2 H (6-9.5) fl Gran % 54.1 (36.0-66.0) % Lymphocytes % 34.7 (24.0-44.0) % Monocytes % 7.6 (0.0-12.0) % Eosinophils % 3.3 (0.00-5.0) % Basophils % 0.3 (0.0-0.4) % Basophils # 0.02 (0-0.4) Sodium 139 (136-145) mEq/L Potassium 3.7 (3.5-5.1) mEq/L Chloride 103 (98-107) mEq/L Carbon Dioxide 27.2 (21-32) mEq/L Anion Gap 12.5 (5-15) MEQ/L BUN 11 (9-20) mg/dL Creatinine 0.81 (0.55-1.30) mg/dl Estimated GFR > 60 ML/MIN Glucose 115 H (70-110) MG/DL Calcium 8.8 (8.5-10.1) mg/dL Total Bilirubin 0.30 (0.2-1.0) mg/dL AST 73 H (15-37) U/L ALT 104 H (12-78) U/L Alkaline Phosphatase 70 (46-116) U/L Serum Total Protein 7.1 (6.4-8.2) gm/dL Albumin 3.4 (3.4-5.0) g/dL Serum , Qual NEGATIVE (Negative) Ur Collection Type Urine Color (YELLOW) Urine Appearance (CLEAR) Urine pH (5-6) Ur Specific Clio (1.005-1.025) Urine Protein (Negative) Urine Ketones (NEGATIVE) Urine Blood (0-5) Pramod/ul Urine Nitrite (NEGATIVE) Urine Bilirubin (NEGATIVE) Urine Urobilinogen (0-1) mg/dL Ur Leukocyte Esterase (NEGATIVE) Urine Culture Reflexed (NO) Urine Glucose (NEGATIVE) mg/dL Specimen Received 05/03/17 Range/Units 16:45 WBC (4.0-10.5) K/mm3 RBC (4.1-5.4) M/mm3 Hgb (12.0-16.0) gm/dl Hct (35-47) % MCV (78-100) fl MCH (26-32) pg MCHC (32-36) g/dl RDW (11.5-14.0) % Plt Count (150-450) K/mm3 MPV (6-9.5) fl Gran % (36.0-66.0) % Lymphocytes % (24.0-44.0) % Monocytes % (0.0-12.0) % Eosinophils % (0.00-5.0) % Basophils % (0.0-0.4) % Basophils # (0-0.4) Sodium (136-145) mEq/L Potassium (3.5-5.1) mEq/L Chloride (98-107) mEq/L Carbon Dioxide (21-32) mEq/L Anion Gap (5-15) MEQ/L BUN (9-20) mg/dL Creatinine (0.55-1.30) mg/dl Estimated GFR ML/MIN Glucose (70-110) MG/DL Calcium (8.5-10.1) mg/dL Total Bilirubin (0.2-1.0) mg/dL AST (15-37) U/L ALT (12-78) U/L Alkaline Phosphatase (46-116) U/L Serum Total Protein (6.4-8.2) gm/dL Albumin (3.4-5.0) g/dL Serum , Qual (Negative) Ur Collection Type CLEAN CATCH Urine Color YELLOW (YELLOW) Urine Appearance CLOUDY (CLEAR) Urine pH 8.0 (5-6) Ur Specific Clio 1.005 (1.005-1.025) Urine Protein NEGATIVE (Negative) Urine Ketones NEGATIVE (NEGATIVE) Urine Blood NEGATIVE (0-5) Pramod/ul Urine Nitrite NEGATIVE (NEGATIVE) Urine Bilirubin NEGATIVE (NEGATIVE) Urine Urobilinogen NORMAL (0-1) mg/dL Ur Leukocyte Esterase NEGATIVE (NEGATIVE) Urine Culture Reflexed NO (NO) Urine Glucose NEGATIVE (NEGATIVE) mg/dL Specimen Received 05/03/17 6365 - Progress Progress Note: 05/03/17 17:08 Dsicussed her chronic pain syndrome. She is out of percocet. She has director of cardiology service line appt. She has had [address] scans at this hospital in recent months and the risk of radiation is great. She understands. She will have pelvic sonogram. 05/03/17 17:43 Pt was given percocet and vistaril here. Advised she follow up tomorrow with her primary care physician to arrange further testing/treatment. Counseled pt/family regarding: lab results, diagnosis, need for follow-up, rad results - Departure Time of Disposition: 17:44 Departure Disposition: Home Clinical Impression: Chronic pelvic pain in female Condition: Stable Critical Care Time: No Referrals: DOCTOR,NO FAMILY [Primary Care Provider] - Instructions: Abdominal Pain-Adult, Pelvic Pain Additional Instructions: No driving today and stay with family. Call your primary doctor tomorrow to arrange further treatment. [place] diet.
[2017-05-03] MEDS ORDERED: PERCOCET TABLET 5/325MG ONE ×2 (17:08→17:53)
[2017-05-03] MEDS ORDERED: Sodium Chloride 0.9% 1000 ML 1,000 ML ONE (17:08)
[2017-05-03 17:11] LABS: BASOPHIL % 0.3 % (0.0-0.4); Eosinophil % 3.3 % (0.00-5.0); Granulocytes % 54.1 % (36.0-66.0); Lymphocytes % 34.7 % (24.0-44.0); Mean Cell Volume 89.8 fl (78-100); Mean Platelet Volume 10.2 fl (6-9.5); Monocytes % 7.6 % (0.0-12.0); Platelet Count 226 K/mm3 (150-450); Red Blood Count 4.01 M/mm3 (4.1-5.4); Red Cell Distribution Width 13.7 % (11.5-14.0); White Blood Count 7.4 K/mm3 (4.0-10.5)
[2017-05-03 17:12] LABS: Mean Corpuscular Hemoglobin 30.1 pg (26-32)
[2017-05-03 17:19] LABS: ADD URINE CULTURE? NO (NO); Bilirubin NEGATIVE (NEGATIVE); Blood NEGATIVE Ery/ul (0-5); COMPLETE URINE MICROSCOPIC? NO; Collection Type CLEAN CATCH; Glucose NEGATIVE (NEGATIVE); Leukocyte Esterase NEGATIVE (NEGATIVE)
[2017-05-03 17:32] LABS: ALBUMIN 3.4 g/dL (3.4-5.0); ALKALINE PHOSPHATASE 70 U/L (46-116); ANION GAP 12.5 MEQ/L (5-15); BLOOD UREA NITROGEN 11 mg/dL (9-20); CHLORIDE 103 mEq/L (98-107); Carbon Dioxide 27.2 mEq/L (21-32); Glucose 115 MG/DL (70-110); Potassium 3.7 mEq/L (3.5-5.1); SGOT/AST 73 U/L (15-37); SGPT/ALT 104 U/L (12-78); SODIUM 139 mEq/L (136-145); Total Protein 7.1 gm/dL (6.4-8.2)
[2017-05-03 17:55] VITALS: BP 120/84; PULSE 60; O2SAT 99
--- NOTE | 2017-05-03 18:43 | XRAY ---
Indication: Pain. Two-dimensional transvaginal pelvic ultrasound was performed. Comparison: None Uterus is anteverted measuring 9.5 x 4.3 x 5.0 cm. A few tiny nabothian cysts seen in the lower uterine segment, largest 4 mm. Remaining myometrium homogeneous. Endometrial stripe measures 4.6 mm. No endometrial cavity mass or fluid collection. Right ovary measures 2.9 x 2.2 x 2.7 cm and the left measures 2.9 x 1.9 x 2.9 cm. Normal perfusion bilaterally. Left ovary demonstrates a 3 cm simple cyst. No suspicious solid adnexal mass or free fluid. Impression: Tiny nabothian cysts. Dominant 3 cm left ovary cyst. Remaining pelvic sonogram negative.
== END 2017-05-03 18:14 | disposition home or self-care (01) ==
LOC: ED 16:17
DX: R10.2 Pelvic and perineal pain (principal); G89.29 Other chronic pain
CPT/HCPCS: 36000; 36415; 76830; 80053; 81002; 84703; 85025; 96360; 96372; 99284; J3410; A9270-GY

== ENCOUNTER 2018-01-29 11:55 | Emergency (ER) | payer OTHER ==
[2018-01-29 12:06] VITALS: O2SAT 99
[2018-01-29] MEDS ORDERED: Phenergan 25 MG INJ IV ONE (12:33)
[2018-01-29] MEDS ORDERED: Sodium Chloride 0.9% 1000 ML 1,000 ML IV STA (12:33)
--- NOTE | 2018-01-29 12:40 | ERPHSYRPT ---
- History of Present Illness Time Seen by Provider: 01/29/18 12:33 Historian: patient Exam Limitations: no limitations Patient Subjective Stated Complaint: pt reports low abd pain worsening with time -states that she has not had n/v but reports loose stools-denies fever Triage Nursing Assessment: pt pink warm and [id number] soft and tender to palp-no rebound tenderness noted-resp easy and nonlabored Physician History: 42-year-old white female with history of migraines, asthma, diverticulosis, rheumatoid arthritis normal heart problems, chronic abdominal pain She arrives with complaint of abdominal pain for over one year she states that his been worse for the past 3 days she states that she has recently seen her family physician and Mel Arceo 3 days ago She has no vomiting no diarrhea no urinary symptoms. Past medical history includes migraines, asthma, diverticulosis, rheumatoid arthritis, heart murmur patient with chronic pelvic and abdominal pain Past surgical history includes cholecystectomy, both fallopian tubes are removed , ectopic , tubal ligation Timing/Duration: other (symptoms for 1 year worse for the past 3 da) Activities at Onset: none Quality: cramping Abdominal Pain Onset Location: suprapubic Pain Radiation: no radiation Severity of Pain-Max: moderate Severity of Pain-Current: moderate Modifying Factors: Improves With: other (patient is on a Stadol Patch and takes Tylenol 3 chronically) Previous symptoms: same symptoms as today Allergies/Adverse Reactions: hydroxychloroquine sulfate [From Plaquenil] Allergy (Intermediate, Verified 03/11 12:06) Rash methotrexate Allergy (Intermediate, Verified 01/29/18 12:06) Rash tramadol Allergy (Intermediate, Verified 01/29/18 12:06) Hives ketorolac [From Toradol] Allergy (Verified 01/29/18 12:06) certolizumab pegol [From Cimzia] Adverse Reaction (Verified 01/29/18 12:06) simvastatin Adverse Reaction (Verified 01/29/18 12:06) Home Medications: Buprenorphine [Butrans] 1 each TD WEEKLY 01/29/18 [History] Codeine Phosphate/APAP #3 [Tylenol #3 Tablet] 1 tab PO TID 01/29/18 [History ] Metoprolol Succinate 25 mg Xl* [Toprol-Xl 25MG Tablets] 25 mg PO BID [History] Mycophenolate Mofetil [Cellcept] 500 mg PO BID 01/29/18 [History] Promethazine HCl 25 mg [Phenergan 25 mg] 25 mg PO UD 01/29/18 [History] Hx Tetanus, Diphtheria Vaccination/Date Given: Yes Hx Influenza Vaccination/Date Given: No Hx Pneumococcal Vaccination/Date Given: No Immunizations Up to Date: Yes - Review of Systems Constitutional: No Fever, No Chills Eyes: No Symptoms Ears, Nose, & Throat: No Symptoms Respiratory: No Cough, No Dyspnea Cardiac: No Chest Pain, No Edema, No Syncope Abdominal/Gastrointestinal: Abdominal Pain (suprapubic abdominal pain) Genitourinary Symptoms: No Dysuria Musculoskeletal: No Back Pain, No Neck Pain Skin: No Rash Neurological: No Dizziness, No Focal Weakness, No Sensory Changes Psychological: No Symptoms Endocrine: No Symptoms All Other Systems: Reviewed and Negative - Past Medical History Pertinent Past Medical History: Yes Neurological History: Migraines Cardiac History: Other Respiratory History: Asthma Endocrine Medical History: No Pertinent History Musculoskeletal History: Rheumatoid Arthritis GI Medical History: Diverticulitis Other Medical History: HEART MURMUR - Past Surgical History Past Surgical History: Yes Gastrointestinal: Cholecystectomy Female Surgical History: Tubal Ligation Other Surgical History: ECTOPIC PREG - Social History Smoking Status: Never smoker Exposure to second hand smoke: Yes Drug Use: none Patient Lives Alone: No - Female History Hx Last Menstrual Period: current Hx Now: No - Nursing Vital Signs Nursing Vital Signs: Initial Vital Signs Temperature 98.1 F 01/29/18 12:01 Pulse Rate 74 01/29/18 12:01 Respiratory Rate 18 01/29/18 12:01 Blood Pressure 138/89 01/29/18 12:01 O2 Sat by Pulse Oximetry 99 01/29/18 12:01 Pain Scale Pain Intensity 8 - Physical Exam General Appearance: no apparent distress, alert, anxiety (anxious in appearance) Eye Exam: PERRL/EOMI, eyes nml inspection Ears, Nose, Throat Exam: normal ENT inspection, pharynx normal, moist mucous membranes Neck Exam: normal inspection, non-tender, supple, full range of motion Respiratory Exam: normal breath sounds, lungs clear, No respiratory distress Cardiovascular Exam: regular rate/rhythm, normal heart sounds Gastrointestinal/Abdomen Exam: soft, normal bowel sounds, tenderness ( Suprapubic tenderness) Back Exam: normal inspection, normal range of motion, No CVA tenderness, No vertebral tenderness Extremity Exam: normal inspection, normal range of motion, pelvis stable Neurologic Exam: alert, oriented x 3, cooperative, survey field technician II-XII nml as tested, normal mood/affect, nml cerebellar function, sensation nml, No motor deficits SpO2 Interpretation: normal (99%) SpO2: 99 Oxygen Delivery: Room Air - Course Nursing assessment & vital signs reviewed: Yes Ordered Tests: Active Orders 24 hr Category Date Time Status IV Insertion STAT Care 01/29/18 12:33 Active AMYLASE Stat Lab 01/29/18 12:45 Completed CBC W DIFF Stat Lab 01/29/18 12:45 Completed CMP Stat Lab 01/29/18 12:45 Completed CULTURE,URINE Stat Lab 01/29/18 13:10 Received HCG QUALITATIVE,SERUM Stat Lab 01/29/18 12:45 Completed LIPASE Stat Lab 01/29/18 12:45 Completed UA W/ MICROSCOPIC Stat Lab 01/29/18 13:10 Completed Urine Triage Profile Stat Lab 01/29/18 13:10 Completed Medication Summary Discontinued Medications Generic Name Dose Route Start Last Admin Trade Name Freq PRN Reason Stop Dose Admin Sodium Chloride 1,000 mls @ 999 mls/hr 01/29/18 12:33 01/29/18 13:44 Sodium Chloride 0.9% 1000 Ml IV 01/29/18 13:33 999 mls/hr .Q1H1M STA Administration Sodium Chloride Confirm 01/29/18 13:40 Sodium Chloride 0.9% 1000 Ml Administered 01/29/18 13:41 Dose 1,000 mls @ ud .ROUTE .STK-MED ONE Promethazine HCl 12.5 mg 01/29/18 12:33 01/29/18 13:44 Phenergan 25 Mg Inj IV 01/29/18 12:34 12.5 mg STAT ONE Administration Promethazine HCl Confirm 01/29/18 13:40 Phenergan 25 Mg Inj Administered 01/29/18 13:41 Dose 25 mg .ROUTE .STK-MED ONE Lab/Rad Data: Laboratory Result Diagrams 01/29/18 12:45 01/29/18 12:45 Laboratory Results 01/29/18 01/29/18 01/29/18 Range/Units 13:10 13:10 12:45 WBC (4.0-10.5) K/mm3 RBC (4.1-5.4) M/mm3 Hgb (12.0-16.0) gm/dl Hct (35-47) % MCV (78-100) fl MCH (26-32) pg MCHC (32-36) g/dl RDW (11.5-14.0) % Plt Count (150-450) K/mm3 MPV (6-9.5) fl Gran % (36.0-66.0) % Eos # (Auto) (0-0.5) Absolute Lymphs (auto) (1.0-4.6) Absolute Monos (auto) (0.0-1.3) Lymphocytes % (24.0-44.0) % Monocytes % (0.0-12.0) % Eosinophils % (0.00-5.0) % Basophils % (0.0-0.4) % Absolute Granulocytes (1.4-6.9) Basophils # (0-0.4) Sodium (137-145) mmol/L Potassium (3.5-5.1) mmol/L Chloride (98-107) mmol/L Carbon Dioxide (22-30) mmol/L Anion Gap (5-15) MEQ/L BUN (7-17) mg/dL Creatinine (0.52-1.04) mg/dL Estimated GFR ML/MIN Glucose (74-106) mg/dL Calcium (8.4-10.2) mg/dL Total Bilirubin (0.2-1.3) mg/dL AST (14-36) U/L ALT (0-35) U/L Alkaline Phosphatase (38-126) U/L Serum Total Protein (6.3-8.2) g/dL Albumin (3.5-5.0) g/dL Amylase (30-110) U/L Lipase (23-300) U/L Serum , Qual NEGATIVE (Negative) Ur Collection Type CCMS Urine Color YELLOW (YELLOW) Urine Appearance HAZY (CLEAR) Urine pH 6.0 (5-6) Ur Specific [place] 1.020 (1.005-1.025) Urine Protein NEGATIVE (Negative) Urine Ketones NEGATIVE (NEGATIVE) Urine Blood 250 (0-5) Pramod/ul Urine Nitrite NEGATIVE (NEGATIVE) Urine Bilirubin NEGATIVE (NEGATIVE) Urine Urobilinogen NORMAL (0-1) mg/dL Ur Leukocyte Esterase TRACE (NEGATIVE) Urine Microscopic RBC 2-5 (0-2) /HPF Urine Microscopic WBC 0-2 (0-5) /HPF Ur Epithelial Cells MODERATE (FEW) /HPF Urine Bacteria FEW (NEGATIVE) /HPF Urine Culture Reflexed YES (NO) Urine Glucose NEGATIVE (NEGATIVE) mg/dL Urine Opiates Level NEGATIVE (NEGATIVE) Ur Methadone NEGATIVE (NEGATIVE) Urine Barbiturates NEGATIVE (NEGATIVE) Ur Phencyclidine (PCP) NEGATIVE (NEGATIVE) Urine Amphetamine NEGATIVE (NEGATIVE) U Benzodiazepine Level NEGATIVE (NEGATIVE) Urine Cocaine NEGATIVE (NEGATIVE) Urine Marijuana (THC) NEGATIVE (NEGATIVE) Specimen Received 1310 01/29/18 01/29/18 01/29/18 Range/Units 12:45 12:45 WBC 7.8 (4.0-10.5) K/mm3 RBC 4.03 L (4.1-5.4) M/mm3 Hgb 12.2 (12.0-16.0) gm/dl Hct 36.6 (35-47) % MCV 90.8 (78-100) fl MCH 30.2 (26-32) pg MCHC 33.3 (32-36) g/dl RDW 14.2 H (11.5-14.0) % Plt Count 270 (150-450) K/mm3 MPV 10.2 H (6-9.5) fl Gran % 67.2 H (36.0-66.0) % Eos # (Auto) 0.26 (0-0.5) Absolute Lymphs (auto) 1.77 (1.0-4.6) Absolute Monos (auto) 0.48 (0.0-1.3) Lymphocytes % 22.8 L (24.0-44.0) % Monocytes % 6.2 (0.0-12.0) % Eosinophils % 3.3 (0.00-5.0) % Basophils % 0.5 (0.0-0.4) % Absolute Granulocytes 5.23 (1.4-6.9) Basophils # 0.04 (0-0.4) Sodium 142 (137-145) mmol/L Potassium 3.8 (3.5-5.1) mmol/L Chloride 109 H (98-107) mmol/L Carbon Dioxide 23 (22-30) mmol/L Anion Gap 13.5 (5-15) MEQ/L BUN 12 (7-17) mg/dL Creatinine 0.70 (0.52-1.04) mg/dL Estimated GFR > 60.0 ML/MIN Glucose 117 H (74-106) mg/dL Calcium 9.1 (8.4-10.2) mg/dL Total Bilirubin 0.20 (0.2-1.3) mg/dL AST 10 L (14-36) U/L ALT 14 (0-35) U/L Alkaline Phosphatase 45 (38-126) U/L Serum Total Protein 6.8 (6.3-8.2) g/dL Albumin 3.8 (3.5-5.0) g/dL Amylase 33 (30-110) U/L Lipase 59 (23-300) U/L Serum , Qual (Negative) Ur Collection Type Urine Color (YELLOW) Urine Appearance (CLEAR) Urine pH (5-6) Ur Specific [place] (1.005-1.025) Urine Protein (Negative) Urine Ketones (NEGATIVE) Urine Blood (0-5) Pramod/ul Urine Nitrite (NEGATIVE) Urine Bilirubin (NEGATIVE) Urine Urobilinogen (0-1) mg/dL Ur Leukocyte Esterase (NEGATIVE) Urine Microscopic RBC (0-2) /HPF Urine Microscopic WBC (0-5) /HPF Ur Epithelial Cells (FEW) /HPF Urine Bacteria (NEGATIVE) /HPF Urine Culture Reflexed (NO) Urine Glucose (NEGATIVE) mg/dL Urine Opiates Level (NEGATIVE) Ur Methadone (NEGATIVE) Urine Barbiturates (NEGATIVE) Ur Phencyclidine (PCP) (NEGATIVE) Urine Amphetamine (NEGATIVE) U Benzodiazepine Level (NEGATIVE) Urine Cocaine (NEGATIVE) Urine Marijuana (THC) (NEGATIVE) Specimen Received - Progress Progress: improved Progress Note: 01/29/18 12:39 42-year-old white female arrives with complaint of suprapubic abdominal pain which she states she has chronic and has been worse for the past 3 days. Patient does have a history of chronic abdominal pain. She sees a pain pest control chemical technician she is on Stadol patches and Tylenol 3. She saw her family doctor 3 days ago. Past medical history includes migraines, asthma, diverticulitis, rheumatoid arthritis, heart murmur, chronic abdominal pain, endometriosis. Past surgical history includes cholecystectomy tubal ligation and ectopic for transfer tech. 01/29/18 14:00 Patient's labs are all essentially normal. Patient is receiving normal saline 1 L IV. Patient has received Phenergan 12.5 mg IV. Patient improved but not completely pain-free. Patient with chronic abdominal and pelvic pain. Will plan to discharge patient patient to continue medications at home clear fluids 24-48 hours follow-up with the patient's family doctor. - Departure Time of Disposition: 14:01 Departure Disposition: Home Clinical Impression: Suprapubic abdominal pain, history of chronic abdominal pain Condition: Fair Critical Care Time: No Referrals: RYAN CORCORAN [Primary Care Provider] - Additional Instructions: Return home. Plenty of fluids clear fluids only 24-48 hours if abdominal pain. Follow-up with your family doctor. Return for acute distress or for severe symptoms. Pain medications as per prescribed by your pain pest control chemical technician and/or your family doctor.
[2018-01-29 13:07] LABS: BASOPHIL % 0.5 % (0.0-0.4); Basophil (Absolute #) 0.04 (0-0.4); Eosinophil % 3.3 % (0.00-5.0); Eosinophil (Absolute #) 0.26 (0-0.5); Granulocyte Absolute (ANC) 5.23 (1.4-6.9); Granulocytes % 67.2 % (36.0-66.0); Hematocrit 36.6 % (35-47); Hemoglobin 12.2 gm/dl (12.0-16.0); Lymphocyte (Absolute #) 1.77 (1.0-4.6); Lymphocytes % 22.8 % (24.0-44.0); Mean Cell Volume 90.8 fl (78-100); Mean Corpuscular Hgb Concent. 33.3 g/dl (32-36); Mean Platelet Volume 10.2 fl (6-9.5); Monocyte (Absolute #) 0.48 (0.0-1.3); Monocytes % 6.2 % (0.0-12.0); Platelet Count 270 K/mm3 (150-450); Red Blood Count 4.03 M/mm3 (4.1-5.4); Red Cell Distribution Width 14.2 % (11.5-14.0); White Blood Count 7.8 K/mm3 (4.0-10.5)
[2018-01-29 13:14] LABS: ALBUMIN 3.8 g/dL (3.5-5.0); ALKALINE PHOSPHATASE 45 U/L (38-126); AMYLASE 33 U/L (30-110); ANION GAP 13.5 MEQ/L (5-15); BLOOD UREA NITROGEN 12 mg/dL (7-17); CHLORIDE 109 mmol/L (98-107); Calcium 9.1 mg/dL (8.4-10.2); Carbon Dioxide 23 mmol/L (22-30); Glucose 117 mg/dL (74-106); LIPASE 59 U/L (23-300); Potassium 3.8 mmol/L (3.5-5.1); SGOT/AST 10 U/L (14-36); SGPT/ALT 14 U/L (0-35); SODIUM 142 mmol/L (137-145); Total Protein 6.8 g/dL (6.3-8.2)
[2018-01-29 13:19] LABS: Appearance HAZY (CLEAR); Bilirubin NEGATIVE (NEGATIVE); Blood 250 Ery/ul (0-5); Glucose NEGATIVE (NEGATIVE); Ketones NEGATIVE (NEGATIVE); Leukocyte Esterase TRACE (NEGATIVE); Nitrite NEGATIVE (NEGATIVE); Protein,Urine Dip NEGATIVE (Negative); Urobilinogen NORMAL mg/dL (0-1)
[2018-01-29 13:24] LABS: Mean Corpuscular Hemoglobin 30.2 pg (26-32)
[2018-01-29 13:40] LABS: Amphetamine,Urine NEGATIVE (NEGATIVE); Barbiturate,Urine NEGATIVE (NEGATIVE); Benzodiazepine,Urine NEGATIVE (NEGATIVE); Cocaine,Urine NEGATIVE (NEGATIVE); Methadone,Urine NEGATIVE (NEGATIVE); Opiate,Urine NEGATIVE (NEGATIVE); PCP,Urine NEGATIVE (NEGATIVE); THC,Urine NEGATIVE (NEGATIVE)
[2018-01-29] MEDS ORDERED: Sodium Chloride 0.9% 1000 ML 1,000 ML ONE (13:40)
[2018-01-29] MEDS ORDERED: Phenergan 25 MG INJ ONE (13:40)
[2018-01-29 13:43] LABS: WBC 0-2 /HPF (0-5)
[2018-01-29 13:44] LABS: Bacteria FEW /HPF (NEGATIVE); Epithelial Cells MODERATE /HPF (FEW)
[2018-01-29 15:03] VITALS: BP 127/69; PULSE 69
== END 2018-01-29 15:03 | disposition home or self-care (01) ==
LOC: ED 11:55
DX: R10.9 Unspecified abdominal pain (principal); Z79.899 Other long term (current) drug therapy
CPT/HCPCS: 36000; 36415; 80053; 80307; 81000; 82150; 83690; 84703; 85025; 87086; 96365; 96374; 99284; J2550

== ENCOUNTER 2018-12-11 15:04 | Emergency (ER) | payer OTHER ==
--- NOTE | 2018-12-11 16:02 | ERPHSYRPT ---
- History of Present Illness Time Seen by Provider: 12/11/18 15:52 Historian: patient Exam Limitations: no limitations Patient Subjective Stated Complaint: Pt states "I had an ablasion done 3 weeks ago and today I woke up at 3 am with horrible heart burn and it feels like my heart is flip flopping. I called [place] ferry [place] supervisor and he said to come and get checked out." Triage Nursing Assessment: Pt presented alert and oriented X 3, skin pwd pt ambulates with an upright steady gait, able to speak in clear full setences. PT no apparent respiratory distress. pt is gagging and coughing Physician History: 43-year-old white female with history heart ablation 3 weeks ago migraines, asthma, diverticulosis, rheumatoid arthritis, chronic abdominal pain Patient arrives with complaint of waking up this morning with the feeling as if her heart was "flip-flopping at 3:00 also was noted to have heartburn since 6: 00. She contacted her ferry terminal supervisor and he recommended she come to the emergency room. Currently not with chest pain however she is having palpitations. Past medical history includes migraines, asthma, diverticulosis, rheumatoid arthritis, heart problems, chronic abdominal pain Past surgical history includes cholecystectomy, both fallopian tubes removed, ectopic , tubal ligation, hysterectomy. Timing/Duration: today (3 AM) Activities at Onset: rest Quality: other (heartburn and palpitations) Location: substernal Chest Pain Radiation: no radiation Severity of Pain-Max: moderate Severity of Pain-Current: mild Modifying Factors: Improves With: nothing Associated Symptoms: palpitations, heartburn, No nausea, No vomiting, No abdominal pain, No shortness of breath, No cough, No hurts to breathe, No diaphoresis, No chills, No fever, No fatigue, No weakness, No swelling/lump in chest, No syncope, No headache, No dizziness, No edema Prior Chest Pain/Cardiac Workup: recently seen/treated (cardiac ablation 3 weeks ago) Aspirin Treatment Today: no aspirin today Allergies/Adverse Reactions: hydroxychloroquine sulfate [From Plaquenil] Allergy (Intermediate, Verified 03/11 12:06) Rash methotrexate Allergy (Intermediate, Verified 01/29/18 12:06) Rash tramadol Allergy (Intermediate, Verified 01/29/18 12:06) Hives ketorolac [From Toradol] Allergy (Verified 01/29/18 12:06) certolizumab pegol [From Cimzia] Adverse Reaction (Verified 01/29/18 12:06) simvastatin Adverse Reaction (Verified 01/29/18 12:06) Home Medications: Buprenorphine [Butrans] 1 each TD WEEKLY 01/29/18 [History] Mycophenolate Mofetil [Cellcept] 500 mg PO BID 01/29/18 [History] Promethazine HCl 25 mg [Phenergan 25 mg] 25 mg PO UD 01/29/18 [History] Dronedarone Hydrochloride 400* [Multaq 400 MG] 400 mg PO BID 12/11/18 [ History] Hx Tetanus, Diphtheria Vaccination/Date Given: No Hx Influenza Vaccination/Date Given: No Hx Pneumococcal Vaccination/Date Given: No Immunizations Up to Date: No - Review of Systems Constitutional: No Fever, No Chills Eyes: No Symptoms Ears, Nose, & Throat: No Symptoms Respiratory: No Cough, No Dyspnea Cardiac: Palpitations, Other (heartburn) Abdominal/Gastrointestinal: No Abdominal Pain, No Nausea, No Vomiting, No Diarrhea, No Constipation, No Hematemesis, No Hematochezia, No Melena, No Dysphagia, No Appetite Changes Genitourinary Symptoms: No Dysuria Musculoskeletal: No Back Pain, No Neck Pain Skin: No Rash Neurological: No Dizziness, No Focal Weakness, No Sensory Changes Psychological: No Symptoms Endocrine: No Symptoms All Other Systems: Reviewed and Negative - Past Medical History Pertinent Past Medical History: Yes Neurological History: Migraines Cardiac History: Other Respiratory History: Asthma Endocrine Medical History: No Pertinent History Musculoskeletal History: Rheumatoid Arthritis GI Medical History: Diverticulitis Other Medical History: HEART MURMUR. atrial fib/flutter - Past Surgical History Past Surgical History: Yes Gastrointestinal: Cholecystectomy Female Surgical History: Tubal Ligation Other Surgical History: ECTOPIC PREG. cardiac ablasion. hysterectomy - Social History Smoking Status: Never smoker Exposure to second hand smoke: No Drug Use: none Patient Lives Alone: No - Female History Hx Last Menstrual Period: hysterectomy Hx Now: No - Nursing Vital Signs Nursing Vital Signs: Initial Vital Signs Temperature 97.9 F 12/11/18 15:05 Pulse Rate 90 12/11/18 15:05 Respiratory Rate 18 12/11/18 15:05 Blood Pressure 135/92 12/11/18 15:05 O2 Sat by Pulse Oximetry 98 12/11/18 15:05 Pain Scale Pain Intensity 3 - Physical Exam General Appearance: no apparent distress, alert Eye Exam: PERRL/EOMI, eyes nml inspection Ears, Nose, Throat Exam: normal ENT inspection, moist mucous membranes Neck Exam: normal inspection, non-tender, supple, full range of motion Respiratory Exam: normal breath sounds, lungs clear, No respiratory distress Cardiovascular Exam: regular rate/rhythm, normal heart sounds Gastrointestinal/Abdomen Exam: soft, No tenderness, No mass Back Exam: normal inspection, No CVA tenderness, No vertebral tenderness Extremity Exam: normal inspection, normal range of motion Neurologic Exam: alert, oriented x 3, cooperative, physical medicine teacher II-XII nml as tested, normal mood/affect, sensation nml, No motor deficits Skin Exam: normal color, warm, dry SpO2 Interpretation: normal (98%) SpO2: 98 - Course Nursing assessment & vital signs reviewed: Yes EKG Interpreted by Me: RATE (81 bpm), Other (EKG: Sinus arrhythmia with intermittent bigeminy 81 beats per minutenormal axis, no acute ST or T wave changes) - CT Exams Chest CT Interpretation: Discussed w/radiologist (CT chest: Impression 1. Mild retrocardiac hiatal hernia 2. 5 mm soft tissue lung nodule within the posterior lateral left lower lobe as seen on axial image #43 in addition, there is a question of a 2-3 mm soft tissue nodule within the mid lateral aspect of the right lower lung field on axial image #36 no routine followup would be recommended that the patient is low risk for development of lung malignancy if the patient is high risk for development of lung malignancy an optional CT at 12 months is suggested. 3. No acute cardiopulmonary disease is seen. 4. Status post cholecystectomy) Ordered Tests: Active Orders 24 hr Category Date Time Status Cloth Colorer STAT Care 12/11/18 15:57 Active EKG-ER Only STAT Care 12/11/18 15:57 Active IV Insertion STAT Care 12/11/18 15:57 Active Pulse Oximetry (ED) STAT Care 12/11/18 15:57 Active CHEST WITH CONTRAST [CT] Stat Exams 12/11/18 15:58 Completed CBC W DIFF Stat Lab 12/11/18 15:57 Completed CMP Stat Lab 12/11/18 16:32 Completed D-DIMER QUANTITATION Stat Lab 12/11/18 16:32 Completed PROTIME WITH INR Stat Lab 12/11/18 16:32 Completed PTT Stat Lab 12/11/18 16:32 Completed TROPONIN Q3H Lab 12/11/18 16:32 Completed Lab/Rad Data: Laboratory Result Diagrams 12/11/18 15:57 12/11/18 16:32 Laboratory Results 12/11/18 12/11/18 12/11/18 Range/Units 16:32 16:32 16:32 WBC (4.0-10.5) K/mm3 RBC (4.1-5.4) M/mm3 Hgb (12.0-16.0) gm/dl Hct (35-47) % MCV (78-100) fl MCH (26-32) pg MCHC (32-36) g/dl RDW (11.5-14.0) % Plt Count (150-450) K/mm3 MPV (6-9.5) fl Gran % (36.0-66.0) % Eos # (Auto) (0-0.5) Absolute Lymphs (auto) (1.0-4.6) Absolute Monos (auto) (0.0-1.3) Lymphocytes % (24.0-44.0) % Monocytes % (0.0-12.0) % Eosinophils % (0.00-5.0) % Basophils % (0.0-0.4) % Absolute Granulocytes (1.4-6.9) Basophils # (0-0.4) PT 11.5 (9.95-12.35) SECONDS INR 0.99 (0.8-3.0) APTT 26.4 (25.3-37.0) SECONDS D-Dimer 344 (215-500) ng/mL Sodium 136 L (137-145) mmol/L Potassium 3.9 (3.5-5.1) mmol/L Chloride 105 (98-107) mmol/L Carbon Dioxide 23 (22-30) mmol/L Anion Gap 12.7 (5-15) MEQ/L BUN 13 (7-17) mg/dL Creatinine 0.75 (0.52-1.04) mg/dL Estimated GFR > 60.0 ML/MIN Glucose 114 H (74-106) mg/dL Calcium 8.5 (8.4-10.2) mg/dL Total Bilirubin 0.20 (0.2-1.3) mg/dL AST 15 (14-36) U/L ALT 21 (0-35) U/L Alkaline Phosphatase 65 (38-126) U/L Troponin I < 0.012 (0.000-0.034) ng/mL Serum Total Protein 6.4 (6.3-8.2) g/dL Albumin 3.4 L (3.5-5.0) g/dL 12/11/18 Range/Units 15:57 WBC 8.3 (4.0-10.5) K/mm3 RBC 3.79 L (4.1-5.4) M/mm3 Hgb 10.4 L (12.0-16.0) gm/dl Hct 32.5 L (35-47) % MCV 85.8 (78-100) fl MCH 27.4 (26-32) pg MCHC 32.0 (32-36) g/dl RDW 15.5 H (11.5-14.0) % Plt Count 404 (150-450) K/mm3 MPV 9.3 (6-9.5) fl Gran % 60.5 (36.0-66.0) % Eos # (Auto) 0.30 (0-0.5) Absolute Lymphs (auto) 2.31 (1.0-4.6) Absolute Monos (auto) 0.64 (0.0-1.3) Lymphocytes % 27.8 (24.0-44.0) % Monocytes % 7.7 (0.0-12.0) % Eosinophils % 3.6 (0.00-5.0) % Basophils % 0.4 (0.0-0.4) % Absolute Granulocytes 5.03 (1.4-6.9) Basophils # 0.03 (0-0.4) PT (9.95-12.35) SECONDS INR (0.8-3.0) APTT (25.3-37.0) SECONDS D-Dimer (215-500) ng/mL Sodium (137-145) mmol/L Potassium (3.5-5.1) mmol/L Chloride (98-107) mmol/L Carbon Dioxide (22-30) mmol/L Anion Gap (5-15) MEQ/L BUN (7-17) mg/dL Creatinine (0.52-1.04) mg/dL Estimated GFR ML/MIN Glucose (74-106) mg/dL Calcium (8.4-10.2) mg/dL Total Bilirubin (0.2-1.3) mg/dL AST (14-36) U/L ALT (0-35) U/L Alkaline Phosphatase (38-126) U/L Troponin I (0.000-0.034) ng/mL Serum Total Protein (6.3-8.2) g/dL Albumin (3.5-5.0) g/dL - Progress Progress: improved Air Movement: fair Progress Note: 12/11/18 17:45 43-year-old white female with history of cardiac ablation 3 weeks ago arrives with complaint of palpitations since 3 AM and complaining of heartburn at approximately 6:00. Arrives with complaints of palpitations on arrival. Patient's stable vital signs patient has an EKG with sinus arrhythmia with PAC and PVCs rate 81 beats per minute normal axis no acute ST or T wave changes patient with a normal d-dimer patient was in normal troponin essentially normal chemistry and CBC patient with a CT of the chest which is remarkable for mild retrocardiac hiatal hernia, there is a 5 mm soft tissue lung nodule within the posterior lateral left lower lobe as seen on axial image 43 and a question of a 2-3 mm soft tissue nodule within the mid lateral aspect of the right lower lung field on axial images 36 no further followup the patient low risk for development of lung malignancy it patient is high risk optional CT at 12 months is suggested There is no acute cardiopulmonary disease seen patient is status post cholecystectomy. Patient has remained stable patient is on throughout to at home I discussed the case with Dr. Cameron , the patient's ferry terminal supervisor from [place] he feels that the patient can return home rest continue her current medications and followup with Dr. Cameron. He does not want the patient to get repeat troponin or aspirin at this time.. - Departure Departure Disposition: Home Clinical Impression: Palpitations Chest pain Qualifiers: Chest pain type: unspecified Qualified Code(s): R07.9 - Chest pain, unspecified Condition: Fair Critical Care Time: No Referrals: RYAN CORCORAN [Primary Care Provider] - Additional Instructions: Return home, rest. Continue current medications. Followup with your ferry terminal supervisor. Return for acute distress or for severe symptoms.
[2018-12-11 16:40] LABS: BASOPHIL % 0.4 % (0.0-0.4); Basophil (Absolute #) 0.03 (0-0.4); Eosinophil % 3.6 % (0.00-5.0); Granulocyte Absolute (ANC) 5.03 (1.4-6.9); Granulocytes % 60.5 % (36.0-66.0); Hematocrit 32.5 % (35-47); Hemoglobin 10.4 gm/dl (12.0-16.0); Lymphocyte (Absolute #) 2.31 (1.0-4.6); Lymphocytes % 27.8 % (24.0-44.0); Mean Cell Volume 85.8 fl (78-100); Mean Corpuscular Hemoglobin 27.4 pg (26-32); Mean Platelet Volume 9.3 fl (6-9.5); Monocyte (Absolute #) 0.64 (0.0-1.3); Monocytes % 7.7 % (0.0-12.0); Platelet Count 404 K/mm3 (150-450); Red Blood Count 3.79 M/mm3 (4.1-5.4); Red Cell Distribution Width 15.5 % (11.5-14.0); White Blood Count 8.3 K/mm3 (4.0-10.5)
[2018-12-11 16:48] LABS: INR 0.99 (0.8-3.0); PROTIME 11.5 SECONDS (9.95-12.35)
[2018-12-11 16:51] LABS: PTT 26.4 SECONDS (25.3-37.0)
[2018-12-11 16:53] LABS: ALBUMIN 3.4 g/dL (3.5-5.0); ALKALINE PHOSPHATASE 65 U/L (38-126); ANION GAP 12.7 MEQ/L (5-15); BLOOD UREA NITROGEN 13 mg/dL (7-17); CHLORIDE 105 mmol/L (98-107); Calcium 8.5 mg/dL (8.4-10.2); Carbon Dioxide 23 mmol/L (22-30); Creatinine 1 0.75 mg/dL (0.52-1.04); Glucose 114 mg/dL (74-106); Potassium 3.9 mmol/L (3.5-5.1); SGOT/AST 15 U/L (14-36); SGPT/ALT 21 U/L (0-35); SODIUM 136 mmol/L (137-145); Total Protein 6.4 g/dL (6.3-8.2)
--- NOTE | 2018-12-11 17:20 | XRAY ---
Exam: CT of the chest with IV contrast from 12/11/2018. CTDI: 17.20 Comparison: AP portable chest film from 02/02/2017. Indication: 43-year-old female had a cardiac ablation procedure 3 weeks ago. She has a history of atrial fibrillation and atrial flutter. Chest pain. She states that she now feels like her heart is "doing flip flops", complains of significant heartburn and weakness. Technique: Post-IV contrast axial images were obtained through the chest during automated injection of 80 cc of Isovue-370 contrast material. Reconstructed coronal and sagittal images were created and reviewed. Findings: The heart size appears normal without pericardial effusion. A mild retrocardiac hiatal hernia is seen measuring about 4.3 cm in diameter on axial image #43. I see no abnormal mediastinal or perihilar lymphadenopathy. No thoracic aortic aneurysm or dissection is seen. No gross evidence of pulmonary embolism is seen, although this study was not performed as a dedicated CTA of the chest. The lungs reveal no infiltrates or interstitial lung disease. The central airways are patent. There is no pneumothorax or pleural effusion. On axial images #42 and #43, I note a 5 mm soft tissue lung nodule at the posterior lateral left lung base within the left lower lobe. The remainder of the left lung is clear. Within the right lung, there is a question of a 2 mm to 3 mm lung nodule within the mid axillary line of the right lower lung field on axial image #36. No other soft tissue lung nodules are seen. The upper abdomen reveals evidence of prior cholecystectomy. The adrenal glands are of normal size and configuration. No other acute process is seen within the upper abdomen. The skeleton reveals no acute fracture or other aggressive bone lesion. Minimal thoracic vertebral endplate spurring is seen. Impression: 1. I note at least a mild retrocardiac hiatal hernia. 2. There is a 5 mm soft tissue lung nodule within the posterior lateral left lower lobe, best seen on axial image #43. In addition, there is a question of a 2-3 mm soft tissue nodule within the mid lateral aspect of the right lower lung field on axial image #36. According to the 2017 [employer] guidelines for pulmonary nodules, no routine follow-up would be recommended if the patient is low risk for development of lung malignancy. If the patient is at high risk for development of lung malignancy, an optional CT at 12 months is suggested. 3. No acute cardiopulmonary disease is seen. 4. Status post cholecystectomy.
[2018-12-11 18:01] VITALS: BP 124/62; PULSE 72
[2018-12-11 18:56] VITALS: O2SAT 98
== END 2018-12-11 18:01 | disposition home or self-care (01) ==
LOC: ED 15:04
DX: R00.2 Palpitations (principal); R07.9 Chest pain, unspecified; Z98.890 Other specified postprocedural states; R01.1 Cardiac murmur, unspecified; K44.9 Diaphragmatic hernia without obstruction or gangrene
CPT/HCPCS: 36000; 36415; 71260; 80053; 84484; 85025; 85379; 85610; 85730; 93005; 93041; 99284

== ENCOUNTER 2020-02-04 18:17 | Emergency (ER) | payer MEDICARE ==
--- NOTE | 2020-02-04 18:44 | ERPHSYRPT ---
- History of Present Illness Time Seen by Provider: 02/04/20 18:30 Source: patient Exam Limitations: no limitations Patient Subjective Stated Complaint: weakness, MAXWELL, nausea Triage Nursing Assessment: pt to ED c/o general malaise onset intermittently yesterday. states "episodes" of weakness, a fib feeling, and L hand numbness/tingling. denies pain. A&Ox4. ambulatory without assistance. 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 no CP or SOB. Physician History: Patient is a 44-year-old female presents to our ED with heart palpitations that started yesterday. Patient states heart palpitations are associated with tingling of her left hand. No nausea or vomiting. No diarrhea. No syncope. No cece chest pain. No trauma. No fever. Symptoms are mild to moderate in intensity when they occur. Patient at her baseline when not experiencing palpitations. States she has been experiencing malaise. Patient believes this is triggering her symptomology. Patient voices no other complaints at this time. Timing/Duration: yesterday Severity: moderate Modifying Factors: Improves With: nothing Associated Symptoms: malaise, No nausea, No vomiting, No shortness of breath, No syncope Allergies/Adverse Reactions: hydroxychloroquine sulfate [From Plaquenil] Allergy (Intermediate, Verified 02/04/20 18:34) Rash methotrexate Allergy (Intermediate, Verified 02/04/20 18:34) Rash tramadol Allergy (Intermediate, Verified 02/04/20 18:34) Hives ketorolac [From Toradol] Allergy (Verified 02/04/20 18:34) certolizumab pegol [From Cimzia] Adverse Reaction (Verified 02/04/20 18:34) simvastatin Adverse Reaction (Verified 02/04/20 18:34) Home Medications: Albuterol 17 gm IH Q4H PRN PRN 02/04/20 [History] Apixaban [Eliquis 2.5 mg Tablet] 5 mg PO BID 02/04/20 [History] Flecainide Acetate 100 mg PO DAILY 02/04/20 [History] Fluticasone Propionate [Flonase Allergy Relief] 9.9 ml NS Q12H PRN PRN 02/04/20 [History] Hydrocodone/APAP 5-325 Tab^^^ [[place] 5-325 Tablet^^^] 1 each PO Q6HPRN PRN MDD 6 02/04/20 [History] Metoprolol Succinate 25 mg PO BID 02/04/20 [History] Omeprazole 40 mg PO BID 02/04/20 [History] Ondansetron HCl [Zofran] 8 mg PO DAILY 02/04/20 [History] SUMAtriptan succinate [Imitrex 50 mg] 50 mg PO DAILY 02/04/20 [History] Hx Tetanus, Diphtheria Vaccination/Date Given: No Hx Influenza Vaccination/Date Given: No Hx Pneumococcal Vaccination/Date Given: No Immunizations Up to Date: No Travel Risk - International Travel Have you traveled outside of the country in past 3 weeks: No - Coronavirus Screening Are you exhibiting any of the following symptoms?: No Close contact with a COVID-19 positive Pt in past 14-21 Days: No - Review of Systems Constitutional: No Symptoms, No Fever, No Chills Eyes: No Symptoms Ears, Nose, & Throat: No Symptoms Respiratory: No Symptoms, No Cough, No Dyspnea Cardiac: No Symptoms, No Chest Pain, No Edema, No Syncope Abdominal/Gastrointestinal: No Symptoms, No Abdominal Pain, No Nausea, No Vomiting, No Diarrhea Genitourinary Symptoms: No Symptoms, No Dysuria Musculoskeletal: No Symptoms, No Back Pain, No Neck Pain Skin: No Symptoms, No Rash Neurological: No Symptoms, No Dizziness, No Focal Weakness, No Sensory Changes Psychological: No Symptoms Endocrine: No Symptoms Hematologic/Lymphatic: No Symptoms Immunological/Allergic: No Symptoms All Other Systems: Reviewed and Negative - Past Medical History Pertinent Past Medical History: Yes Neurological History: Migraines ENT History: No Pertinent History Cardiac History: Other Respiratory History: Asthma Endocrine Medical History: No Pertinent History Musculoskeletal History: Rheumatoid Arthritis GI Medical History: Diverticulitis History: No Pertinent History Psycho-Social History: No Pertinent History Female Reproductive Disorders: No Pertinent History Other Medical History: HEART MURMUR. atrial fib/flutter - Past Surgical History Past Surgical History: Yes Gastrointestinal: Cholecystectomy Female Surgical History: Hysterectomy, Tubal Ligation Other Surgical History: ECTOPIC PREG. cardiac ablasion - Social History Smoking Status: Never smoker Exposure to second hand smoke: No Drug Use: none Patient Lives Alone: No - Female History Hx Now: No (hysterectomy) - Nursing Vital Signs Nursing Vital Signs: Initial Vital Signs Temperature 98.0 F 02/04/20 18:25 Pulse Rate 86 02/04/20 18:25 Respiratory Rate 18 02/04/20 18:25 Blood Pressure 136/104 02/04/20 18:25 O2 Sat by Pulse Oximetry 97 02/04/20 18:25 Pain Scale Pain Intensity 5 - Physical Exam General Appearance: no apparent distress, alert Eye Exam: PERRL/EOMI, eyes nml inspection Ears, Nose, Throat Exam: normal ENT inspection, TMs normal, pharynx normal, moist mucous membranes Neck Exam: normal inspection, non-tender, supple, full range of motion Respiratory Exam: normal breath sounds, lungs clear, No respiratory distress Cardiovascular Exam: regular rate/rhythm, normal heart sounds, normal peripheral pulses Gastrointestinal/Abdomen Exam: soft, normal bowel sounds, No tenderness, No mass Pelvic Exam: not done Back Exam: normal inspection, normal range of motion, No CVA tenderness, No vertebral tenderness Extremity Exam: normal inspection, normal range of motion, pelvis stable Neurologic Exam: alert, oriented x 3, cooperative, normal mood/affect, nml cerebellar function, nml station & gait, sensation nml, No motor deficits Skin Exam: normal color, warm, dry, No rash Lymphatic Exam: No adenopathy SpO2 Interpretation: normal SpO2: 97 O2 Delivery: Room Air - Course Nursing assessment & vital signs reviewed: Yes EKG Interpreted by Me: RATE (78), Sinus Rhythm, NORMAL AXIS, NORMAL INTERVALS Ordered Tests: Active Orders 24 hr Category Date Time Status Curb Builder STAT Care 02/04/20 18:38 Active EKG-ER Only STAT Care 02/04/20 18:37 Active IV Insertion STAT Care 02/04/20 18:37 Active Pulse Oximetry (ED) STAT Care 02/04/20 18:37 Active CBC W DIFF Stat Lab 02/04/20 19:02 Completed CMP Stat Lab 02/04/20 19:02 Completed CULTURE,URINE Stat Lab 02/04/20 20:09 Received HCG,QUALITATIVE URINE Stat Lab 02/04/20 20:00 Completed MAGNESIUM Stat Lab 02/04/20 19:02 Completed TROPONIN Q3H Lab 02/04/20 19:02 Completed TROPONIN Q3H Lab 02/04/20 21:45 Completed TROPONIN Q3H Lab 02/05/20 00:45 Ordered TROPONIN Q3H Lab 02/05/20 03:45 Ordered TROPONIN Q3H Lab 02/05/20 06:45 Ordered TSH, 3RD Generation Urgent Lab 02/04/20 19:02 Completed UA W/RFX UR CULTURE Stat Lab 02/04/20 20:09 Completed Holter Monitor ONCE RT 02/04/20 23:01 Active Medication Summary Discontinued Medications Generic Name Dose Route Start Last Admin Trade Name Jody PRN Reason Stop Dose Admin Acetaminophen 975 mg 02/04/20 20:57 02/04/20 21:00 Tylenol 325 Mg PO 02/04/20 20:58 975 mg STAT ONE Administration Acetaminophen Confirm 02/04/20 20:59 Tylenol 325 Mg Administered 02/04/20 21:00 Dose 975 mg .ROUTE .STK-MED ONE Lab/Rad Data: Laboratory Result Diagrams 02/04/20 19:02 02/04/20 19:02 Laboratory Results 02/04/20 02/04/20 02/04/20 Range/Units 21:45 20:09 20:00 WBC (4.0-10.5) K/mm3 RBC (4.1-5.4) M/mm3 Hgb (12.0-16.0) gm/dl Hct (35-47) % MCV (78-100) fl MCH (26-32) pg MCHC (32-36) g/dl RDW (11.5-14.0) % Plt Count (150-450) K/mm3 MPV (7.5-11.0) fl Gran % (36.0-66.0) % Eos # (Auto) (0-0.5) Absolute Lymphs (auto) (1.0-4.6) Absolute Monos (auto) (0.0-1.3) Lymphocytes % (24.0-44.0) % Monocytes % (0.0-12.0) % Eosinophils % (0.00-5.0) % Basophils % (0.0-0.4) % Absolute Granulocytes (1.4-6.9) Basophils # (0-0.4) Sodium (137-145) mmol/L Potassium (3.5-5.1) mmol/L Chloride (98-107) mmol/L Carbon Dioxide (22-30) mmol/L Anion Gap (5-15) MEQ/L BUN (7-17) mg/dL Creatinine (0.52-1.04) mg/dL Estimated GFR ML/MIN Glucose (74-106) mg/dL Calcium (8.4-10.2) mg/dL Magnesium (1.6-2.3) mg/dL Total Bilirubin (0.2-1.3) mg/dL AST (14-36) U/L ALT (0-35) U/L Alkaline Phosphatase (38-126) U/L Troponin I < 0.012 (0.000-0.034) ng/mL Serum Total Protein (6.3-8.2) g/dL Albumin (3.5-5.0) g/dL TSH 3rd Generation (0.47-4.68) mIU/L Urine Color YELLOW (YELLOW) Urine Appearance CLOUDY (CLEAR) Urine pH 7.0 (5-6) Ur Specific [place] 1.019 (1.005-1.025) Urine Protein NEGATIVE (Negative) Urine Ketones NEGATIVE (NEGATIVE) Urine Blood NEGATIVE (0-5) Pramod/ul Urine Nitrite NEGATIVE (NEGATIVE) Urine Bilirubin NEGATIVE (NEGATIVE) Urine Urobilinogen NEGATIVE (0-1) mg/dL Ur Leukocyte Esterase NEGATIVE (NEGATIVE) Urine WBC (Auto) 6-10 (0-5) /HPF Urine RBC (Auto) 0-2 (0-2) /HPF U Epithel Cells (Auto) RARE (FEW) /HPF Urine Bacteria (Auto) MODERATE (NEGATIVE) /HPF Urine Mucus (Auto) SLIGHT (NEGATIVE) /HPF Urine Culture Reflexed YES (NO) Urine Glucose NEGATIVE (NEGATIVE) mg/dL Urine HCG, Qual NEGATIVE (Negative) 02/04/20 02/04/20 02/04/20 Range/Units 19:02 19:02 19:02 WBC 4.7 (4.0-10.5) K/mm3 RBC 4.53 (4.1-5.4) M/mm3 Hgb 14.0 (12.0-16.0) gm/dl Hct 41.1 (35-47) % MCV 90.7 (78-100) fl MCH 30.9 (26-32) pg MCHC 34.1 (32-36) g/dl RDW 12.9 (11.5-14.0) % Plt Count 237 (150-450) K/mm3 MPV 10.0 (7.5-11.0) fl Gran % 44.6 (36.0-66.0) % Eos # (Auto) 0.35 (0-0.5) Absolute Lymphs (auto) 1.86 (1.0-4.6) Absolute Monos (auto) 0.37 (0.0-1.3) Lymphocytes % 39.5 (24.0-44.0) % Monocytes % 7.9 (0.0-12.0) % Eosinophils % 7.4 H (0.00-5.0) % Basophils % 0.6 (0.0-0.4) % Absolute Granulocytes 2.10 (1.4-6.9) Basophils # 0.03 (0-0.4) Sodium 140 (137-145) mmol/L Potassium 4.0 (3.5-5.1) mmol/L Chloride 109 H (98-107) mmol/L Carbon Dioxide 24 (22-30) mmol/L Anion Gap 10.5 (5-15) MEQ/L BUN 15 (7-17) mg/dL Creatinine 0.74 (0.52-1.04) mg/dL Estimated GFR > 60.0 ML/MIN Glucose 142 H (74-106) mg/dL Calcium 9.2 (8.4-10.2) mg/dL Magnesium 2.1 (1.6-2.3) mg/dL Total Bilirubin 0.40 (0.2-1.3) mg/dL AST 31 (14-36) U/L ALT 34 (0-35) U/L Alkaline Phosphatase 67 (38-126) U/L Troponin I 0.021 (0.000-0.034) ng/mL Serum Total Protein 7.1 (6.3-8.2) g/dL Albumin 4.0 (3.5-5.0) g/dL TSH 3rd Generation 2.630 (0.47-4.68) mIU/L Urine Color (YELLOW) Urine Appearance (CLEAR) Urine pH (5-6) Ur Specific [place] (1.005-1.025) Urine Protein (Negative) Urine Ketones (NEGATIVE) Urine Blood (0-5) Pramod/ul Urine Nitrite (NEGATIVE) Urine Bilirubin (NEGATIVE) Urine Urobilinogen (0-1) mg/dL Ur Leukocyte Esterase (NEGATIVE) Urine WBC (Auto) (0-5) /HPF Urine RBC (Auto) (0-2) /HPF U Epithel Cells (Auto) (FEW) /HPF Urine Bacteria (Auto) (NEGATIVE) /HPF Urine Mucus (Auto) (NEGATIVE) /HPF Urine Culture Reflexed (NO) Urine Glucose (NEGATIVE) mg/dL Urine HCG, Qual (Negative) - Progress Progress: improved Progress Note: 02/04/20 23:22 Patient reassessed. Symptoms resolved. I spoke to Dr. Warner, Dr. Cameron's partner (patient's hearing aid dispenser) who agrees with plan of care. Patient's chart per shows that patient has been experiencing similar symptoms and is currently scheduled to undergo a cardiac stress test as well as an echocardiogram. In light of her essentially negative work-up in our ED and resolution of symptoms we will discharge patient home. We will apply a 48-hour Holter monitor. We will schedule patient for outpatient cardiac stress test and echocardiogram. Patient declined admission. Patient understands the risks and said that she home. Will discharge patient home. Patient agrees to undergo the outpatient testing. She agrees to follow-up with her primary care doctor/hearing aid dispenser within 48 hours for reevaluation. Counseled pt/family regarding: lab results, diagnosis, need for follow-up, rad results - Departure Departure Disposition: Home Clinical Impression: Heart palpitations Condition: Stable Critical Care Time: No Referrals: RYAN CORCORAN [Primary Care Provider] - Additional Instructions: Discharge/Care Plan DESMOND LLOYD was seen on 02/04/20 in the Emergency Room. The patient was counseled regarding Diagnosis,Lab results, Imaging studies, need for follow up and when to return to the Emergency Room. Prescriptions given: Discharge Note I have spoken with the patient and/or caregivers. I have explained the patient's condition, diagnosis and treatment plan based on the information available to me at this time. I have answered the patient's and/or caregiver's questions and addressed any concerns. The patient and/or caregivers have as good understanding of the patient's diagnosis, condition and treatment plan as can be expected at this point. The vital signs have been stable. The patient's condition is stable and appropriate for discharge from the emergency department. The patient will pursue further outpatient evaluation with the primary care physician or other designated or consulting physician as outlined in the discharge instructions. The patient and/or caregivers are agreeable to this plan of care and follow-up instructions have been explained in detail. The patient and/or caregivers have received these instruction. The patient/and or caregivers are aware that any significant change in condition or worsening of symptoms should prompt an immediate return to this or the closest emergency department or call 911.
[2020-02-04 19:02] LABS: BASOPHIL % 0.6 % (0.0-0.4); Basophil (Absolute #) 0.03 (0-0.4); Eosinophil % 7.4 % (0.00-5.0); Eosinophil (Absolute #) 0.35 (0-0.5); Hematocrit 41.1 % (35-47); Lymphocyte (Absolute #) 1.86 (1.0-4.6); Lymphocytes % 39.5 % (24.0-44.0); Mean Cell Volume 90.7 fl (78-100); Mean Corpuscular Hemoglobin 30.9 pg (26-32); Mean Corpuscular Hgb Concent. 34.1 g/dl (32-36); Monocyte (Absolute #) 0.37 (0.0-1.3); Monocytes % 7.9 % (0.0-12.0); Neutrophil % 44.6 % (36.0-66.0); Platelet Count 237 K/mm3 (150-450); Red Blood Count 4.53 M/mm3 (4.1-5.4); Red Cell Distribution Width 12.9 % (11.5-14.0); White Blood Count 4.7 K/mm3 (4.0-10.5)
[2020-02-04 19:14] LABS: ALKALINE PHOSPHATASE 67 U/L (38-126); ANION GAP 10.5 MEQ/L (5-15); BLOOD UREA NITROGEN 15 mg/dL (7-17); CHLORIDE 109 mmol/L (98-107); Calcium 9.2 mg/dL (8.4-10.2); Carbon Dioxide 24 mmol/L (22-30); Creatinine 1 0.74 mg/dL (0.52-1.04); Glucose 142 mg/dL (74-106); MAGNESIUM 2.1 mg/dL (1.6-2.3); SGOT/AST 31 U/L (14-36); SGPT/ALT 34 U/L (0-35); SODIUM 140 mmol/L (137-145); Total Protein 7.1 g/dL (6.3-8.2)
[2020-02-04 19:44] LABS: TROPONIN 0.021 ng/mL (0.000-0.034); TSH, 3RD Generation 2.63 mIU/L (0.47-4.68)
[2020-02-04 20:56] LABS: Appearance CLOUDY (CLEAR); Bilirubin NEGATIVE (NEGATIVE); Blood NEGATIVE Ery/ul (0-5); Epithelial Cells RARE /HPF (FEW); Glucose NEGATIVE (NEGATIVE); Ketones NEGATIVE (NEGATIVE); Leukocyte Esterase NEGATIVE (NEGATIVE); Mucus SLIGHT /HPF (NEGATIVE); Nitrite NEGATIVE (NEGATIVE); Protein,Urine Dip NEGATIVE (Negative); RBC 0-2 /HPF (0-2); Specific Gravity 1.019 (1.005-1.025); Urobilinogen NEGATIVE mg/dL (0-1)
[2020-02-04] MEDS ORDERED: TYLENOL 325 MG PO ONE (20:57)
[2020-02-04 20:59] LABS: Bacteria MODERATE /HPF (NEGATIVE)
[2020-02-04] MEDS ORDERED: TYLENOL 325 MG ONE (20:59)
[2020-02-04 22:11] VITALS: O2SAT 97
[2020-02-04 23:36] VITALS: BP 116/77; PULSE 68
== END 2020-02-04 23:39 | disposition home or self-care (01) ==
LOC: ED 18:17
DX: R00.2 Palpitations (principal); R20.2 Paresthesia of skin; R53.83 Other fatigue; I48.91 Unspecified atrial fibrillation; Z79.899 Other long term (current) drug therapy
CPT/HCPCS: 36000; 36415; 80053; 81001; 83735; 84443; 84484; 84703; 85025; 87086; 93005; 93041; 93225; 94760; 99284; A9270-GY

== ENCOUNTER 2020-04-23 14:42 | Emergency (ER) | payer MEDICARE ==
--- NOTE | 2020-04-23 14:56 | ERPHSYRPT ---
- History of Present Illness Time Seen by Provider: 04/23/20 14:49 Historian: patient Exam Limitations: no limitations Patient Subjective Stated Complaint: Her esoohagus and chest are bothering her after she took her first dose of clindamycin for a presumed scalp infection. Physician History: She has some painful scalp "sores" that she saw her PCP for, Rx cleocin pending a derm referral. She has a sensitive esophagus and GERD and the antibiotic caused her esophagus to "burn" and her chest to hurt. It sounds like she has been dx with eosinophilic esophagitis. She has several other health problems as well. The scalp sores are on both sides of the midline of her occipital scalp, which basically rules out shingles. Timing/Duration: today Quality: burning Location: substernal, central, epigastric Chest Pain Radiation: no radiation Severity of Pain-Max: moderate Severity of Pain-Current: moderate Modifying Factors: Improves With: nothing Associated Symptoms: nausea Prior Chest Pain/Cardiac Workup: no prior chest pain Nitro Today/Relief: no nitro taken today (does not have CAD) Aspirin Treatment Today: no aspirin today Allergies/Adverse Reactions: hydroxychloroquine sulfate [From Plaquenil] Allergy (Intermediate, Verified 04/23/20 14:45) Rash methotrexate Allergy (Intermediate, Verified 04/23/20 14:45) Rash tramadol Allergy (Intermediate, Verified 04/23/20 14:45) Hives ketorolac [From Toradol] Allergy (Verified 04/23/20 14:45) certolizumab pegol [From Cimzia] Adverse Reaction (Verified 04/23/20 14:45) simvastatin Adverse Reaction (Verified 04/23/20 14:45) Home Medications: Albuterol 17 gm IH Q4H PRN PRN 02/04/20 [History] Apixaban [Eliquis 2.5 mg Tablet] 5 mg PO BID 02/04/20 [History] Flecainide Acetate 100 mg PO DAILY 02/04/20 [History] Fluticasone Propionate [Flonase Allergy Relief] 9.9 ml NS Q12H PRN PRN 02/04/20 [History] Hydrocodone/APAP 5-325 Tab^^^ [[place] 5-325 Tablet^^^] 1 each PO Q6HPRN PRN MDD 6 02/04/20 [History] Metoprolol Succinate 25 mg PO BID 02/04/20 [History] Omeprazole 40 mg PO BID 02/04/20 [History] Ondansetron HCl [Zofran] 8 mg PO DAILY 02/04/20 [History] SUMAtriptan succinate [Imitrex 50 mg] 50 mg PO DAILY 02/04/20 [History] Hx Tetanus, Diphtheria Vaccination/Date Given: No Hx Influenza Vaccination/Date Given: No Hx Pneumococcal Vaccination/Date Given: No Travel Risk - International Travel Have you traveled outside of the country in past 3 weeks: No - Coronavirus Screening Are you exhibiting any of the following symptoms?: No Close contact with a COVID-19 positive Pt in past 14-21 Days: No - Review of Systems Constitutional: No Symptoms Eyes: No Symptoms Ears, Nose, & Throat: No Symptoms Respiratory: No Symptoms Cardiac: Chest Pain (more like GERD) Abdominal/Gastrointestinal: Nausea, Dysphagia (esophagus inflamed) Genitourinary Symptoms: No Symptoms Musculoskeletal: No Symptoms Skin: No Symptoms Neurological: No Symptoms Psychological: No Symptoms Endocrine: No Symptoms Hematologic/Lymphatic: No Symptoms Immunological/Allergic: No Symptoms All Other Systems: Reviewed and Negative - Past Medical History Pertinent Past Medical History: Yes Neurological History: Migraines ENT History: No Pertinent History Cardiac History: Other Respiratory History: Asthma Endocrine Medical History: No Pertinent History Musculoskeletal History: Rheumatoid Arthritis GI Medical History: Diverticulitis History: No Pertinent History Psycho-Social History: No Pertinent History Female Reproductive Disorders: No Pertinent History Other Medical History: HEART MURMUR. atrial fib/flutter - Past Surgical History Past Surgical History: Yes Gastrointestinal: Cholecystectomy Female Surgical History: Hysterectomy, Tubal Ligation Other Surgical History: ECTOPIC PREG. cardiac ablasion - Social History Smoking Status: Never smoker Exposure to second hand smoke: No Drug Use: none Patient Lives Alone: No - Nursing Vital Signs Nursing Vital Signs: Initial Vital Signs Temperature 97.9 F 04/23/20 14:45 Pulse Rate 77 04/23/20 14:45 Respiratory Rate 20 04/23/20 14:45 Blood Pressure 146/83 04/23/20 14:45 O2 Sat by Pulse Oximetry 100 04/23/20 14:45 Pain Scale Pain Intensity 0 - Physical Exam General Appearance: mild distress, alert, anxiety Eye Exam: PERRL/EOMI, eyes nml inspection Ears, Nose, Throat Exam: normal ENT inspection, moist mucous membranes Neck Exam: normal inspection, non-tender Respiratory Exam: normal breath sounds, airway intact Cardiovascular Exam: regular rate/rhythm, normal heart sounds Gastrointestinal/Abdomen Exam: soft, normal bowel sounds Pelvic Exam: not done Rectal Exam: deferred Back Exam: normal inspection Extremity Exam: normal inspection Neurologic Exam: alert, oriented x 3, cooperative Skin Exam: normal color, other (There are several small and inflamed papules in her scalp, possibly infected.) SpO2 Interpretation: normal SpO2: 100 O2 Delivery: Room Air - Course Nursing assessment & vital signs reviewed: Yes EKG Interpreted by Me: RATE (77), Sinus Rhythm, NORMAL AXIS, NORMAL INTERVALS, NORMAL QRS, NORMAL ST-T - Radiology Exams Chest X-ray Interpretation: Reviewed by me, Negative Ordered Tests: Active Orders 24 hr Category Date Time Status 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 STAT Care 04/23/20 16:19 Completed EKG-ER Only STAT Care 04/23/20 15:22 Completed CHEST 1 VIEW (PORTABLE) Stat Exams 04/23/20 15:19 Completed CBC W DIFF Stat Lab 04/23/20 14:55 Completed CMP Stat Lab 04/23/20 14:55 Completed TROPONIN Q3H Lab 04/23/20 14:55 Completed Medication Summary Discontinued Medications Generic Name Dose Route Start Last Admin Trade Name Freq PRN Reason Stop Dose Admin Al Hydrox/Mg Hydrox/Simethicone Confirm 04/23/20 15:32 Maalox Es 30 Ml Unit Dose Administered 04/23/20 15:33 Dose 30 ml .ROUTE .STK-MED ONE Lidocaine HCl Confirm 04/23/20 15:32 Xylocaine Hcl Viscous * Administered 04/23/20 15:33 Dose 15 ml .ROUTE .STK-MED ONE Magnesium Hydroxide 45 ml 04/23/20 15:23 04/23/20 15:37 Gi Cocktail 45 Ml (Maalox/Lidocaine) PO 04/23/20 15:24 45 ml STAT ONE Administration Ondansetron HCl Confirm 04/23/20 15:24 Zofran 4 Mg/2 Ml Vial Administered 04/23/20 15:25 Dose 4 mg .ROUTE .STK-MED ONE Ondansetron HCl 4 mg 04/23/20 15:29 04/23/20 15:30 Zofran 4 Mg/2 Ml Vial IV 04/23/20 15:30 4 mg STAT ONE Administration Lab/Rad Data: Laboratory Result Diagrams 04/23/20 14:55 04/23/20 14:55 Laboratory Results 04/23/20 04/23/20 04/23/20 Range/Units 14:55 14:55 14:55 WBC 8.3 (4.0-10.5) K/mm3 RBC 4.55 (4.1-5.4) M/mm3 Hgb 14.4 (12.0-16.0) gm/dl Hct 41.9 (35-47) % MCV 92.1 (78-100) fl MCH 31.6 (26-32) pg MCHC 34.4 (32-36) g/dl RDW 13.5 (11.5-14.0) % Plt Count 234 (150-450) K/mm3 MPV 9.7 (7.5-11.0) fl Gran % 58.1 (36.0-66.0) % Eos # (Auto) 0.52 H (0-0.5) Absolute Lymphs (auto) 2.21 (1.0-4.6) Absolute Monos (auto) 0.69 (0.0-1.3) Lymphocytes % 26.7 (24.0-44.0) % Monocytes % 8.3 (0.0-12.0) % Eosinophils % 6.3 H (0.00-5.0) % Basophils % 0.6 (0.0-0.4) % Absolute Granulocytes 4.82 (1.4-6.9) Basophils # 0.05 (0-0.4) Sodium 137 (137-145) mmol/L Potassium 3.7 (3.5-5.1) mmol/L Chloride 107 (98-107) mmol/L Carbon Dioxide 23 (22-30) mmol/L Anion Gap 10.7 (5-15) MEQ/L BUN 12 (7-17) mg/dL Creatinine 0.90 (0.52-1.04) mg/dL Estimated GFR > 60.0 ML/MIN Glucose 111 H (74-106) mg/dL Calcium 8.9 (8.4-10.2) mg/dL Total Bilirubin 0.50 (0.2-1.3) mg/dL AST 25 (14-36) U/L ALT 22 (0-35) U/L Alkaline Phosphatase 57 (38-126) U/L Troponin I < 0.012 (0.000-0.034) ng/mL Serum Total Protein 7.5 (6.3-8.2) g/dL Albumin 4.6 (3.5-5.0) g/dL Labs normal. - Progress Progress: improved Air Movement: good Progress Note: The cleocin aggravated her esophagus and that caused the "chest pain". Work- up neg and all sx resolved with a GI cocktail. The exact nature of the scalp lesions unclear, maybe infectious, Rx keflex, derm consult pending. 04/24/20 03:55 Blood Culture(s) Obtained: No Antibiotics given: Yes Counseled pt/family regarding: lab results, diagnosis, need for follow-up, rad results - Departure Departure Disposition: Home Clinical Impression: Esophagitis, Infection of scalp Condition: Stable Critical Care Time: No Instructions: Adverse Drug Reactions, Adult (DC) Additional Instructions: Stop the clindamycin and start keflex for the scalp infection. Maalox or [place] should help the esophagus irritation. Zofran for nausea. Recheck if not better. Prescriptions: Cephalexin Mh 500 mg [Keflex 500 mg] 500 mg PO TID #30 capsule
[2020-04-23] MEDS ORDERED: GI COCKTAIL 45 ML (Maalox/Lidocaine) PO ONE (15:23)
[2020-04-23] MEDS ORDERED: Zofran 4 MG/2 ML VIAL ONE (15:24)
[2020-04-23 15:26] LABS: Absolute Neutrophil Ct (ANC) 4.82 (1.4-6.9); BASOPHIL % 0.6 % (0.0-0.4); Basophil (Absolute #) 0.05 (0-0.4); Eosinophil % 6.3 % (0.00-5.0); Eosinophil (Absolute #) 0.52 (0-0.5); Hematocrit 41.9 % (35-47); Hemoglobin 14.4 gm/dl (12.0-16.0); Lymphocyte (Absolute #) 2.21 (1.0-4.6); Lymphocytes % 26.7 % (24.0-44.0); Mean Cell Volume 92.1 fl (78-100); Mean Corpuscular Hemoglobin 31.6 pg (26-32); Mean Corpuscular Hgb Concent. 34.4 g/dl (32-36); Mean Platelet Volume 9.7 fl (7.5-11.0); Monocyte (Absolute #) 0.69 (0.0-1.3); Monocytes % 8.3 % (0.0-12.0); Neutrophil % 58.1 % (36.0-66.0); Platelet Count 234 K/mm3 (150-450); Red Blood Count 4.55 M/mm3 (4.1-5.4); Red Cell Distribution Width 13.5 % (11.5-14.0); White Blood Count 8.3 K/mm3 (4.0-10.5)
[2020-04-23] MEDS ORDERED: Zofran 4 MG/2 ML VIAL IV ONE (15:29)
[2020-04-23] MEDS ORDERED: MAALOX ES 30 ML UNIT DOSE ONE (15:32)
[2020-04-23] MEDS ORDERED: XYLOCAINE HCl Viscous ONE (15:32)
[2020-04-23 15:42] LABS: ALBUMIN 4.6 g/dL (3.5-5.0); ALKALINE PHOSPHATASE 57 U/L (38-126); ANION GAP 10.7 MEQ/L (5-15); BLOOD UREA NITROGEN 12 mg/dL (7-17); CHLORIDE 107 mmol/L (98-107); Calcium 8.9 mg/dL (8.4-10.2); Carbon Dioxide 23 mmol/L (22-30); EST GLOMERULAR FILTRATION RATE > 60.0 ML/MIN; Glucose 111 mg/dL (74-106); Potassium 3.7 mmol/L (3.5-5.1); SGOT/AST 25 U/L (14-36); SGPT/ALT 22 U/L (0-35); SODIUM 137 mmol/L (137-145); Total Protein 7.5 g/dL (6.3-8.2)
[2020-04-23 16:19] VITALS: BP 125/87
--- NOTE | 2020-04-23 16:33 | XRAY ---
Indication: Chest pain. Dyspnea. Comparison: February 02, 2017. Portable chest again demonstrates normal heart and lungs. Bony thorax intact. No new/acute findings.
[2020-04-23 16:55] VITALS: PULSE 71
[2020-04-24 03:53] VITALS: O2SAT 100
== END 2020-04-23 17:10 | disposition home or self-care (01) ==
LOC: ED 14:42
DX: K20.9 Esophagitis, unspecified (principal); B99.8 Other infectious disease; L08.9 Local infection of the skin and subcutaneous tissue, unspecified
CPT/HCPCS: 36000; 36415; 71045; 80053; 84484; 85025; 93005; 93041; 96374; 99284; J2405; A9270-GY

== ENCOUNTER 2020-11-26 12:07 | Emergency (ER) | payer MEDICARE ==
[2020-11-26 12:47] LABS: Absolute Neutrophil Ct (ANC) 4.19 (1.4-6.9); BASOPHIL % 0.5 % (0.0-0.4); Basophil (Absolute #) 0.04 (0-0.4); Eosinophil % 5.6 % (0.00-5.0); Eosinophil (Absolute #) 0.43 (0-0.5); Hematocrit 39.5 % (35-47); Hemoglobin 13.4 gm/dl (12.0-16.0); Lymphocyte (Absolute #) 2.35 (1.0-4.6); Lymphocytes % 30.7 % (24.0-44.0); Mean Corpuscular Hemoglobin 30.5 pg (26-32); Mean Corpuscular Hgb Concent. 33.9 g/dl (32-36); Mean Platelet Volume 9.3 fl (7.5-11.0); Monocyte (Absolute #) 0.65 (0.0-1.3); Monocytes % 8.5 % (0.0-12.0); Neutrophil % 54.7 % (36.0-66.0); Platelet Count 275 K/mm3 (150-450); Red Blood Count 4.39 M/mm3 (4.1-5.4); Red Cell Distribution Width 12.8 % (11.5-14.0); White Blood Count 7.7 K/mm3 (4.0-10.5)
[2020-11-26] MEDS ORDERED: DUONEB 0.5-3 MG/3 ml Neb IH ONE (12:47)
[2020-11-26] MEDS: DUONEB 0.5-3 MG/3 ml Neb IH ONE (12:48)
[2020-11-26] MEDS ORDERED: BENADRYL 50 MG/ML ONE (12:49)
[2020-11-26] MEDS: BENADRYL 50 MG/ML IV ONE (12:51)
--- NOTE | 2020-11-26 13:11 | ERPHSYRPT ---
- History of Present Illness Time Seen by Provider: 11/26/20 12:20 Source: patient Exam Limitations: no limitations Patient Subjective Stated Complaint: pt here for sob for a couple days, she states she feels wheezy to throat, she states she has an esphogeal problem, she is able to eat a drink Triage Nursing Assessment: pt walked in, resp easy, face mask in place, skin w/d/p. she is able to carry on a conversation, Physician History: Patient is a 45-year-old female presents to our ED with complaints of shortness of breath x2 days. Patient states she has been wheezing. Patient has a history of EOE, eosinophilic esophagitis. Patient wonders whether or not her shortness of breath is related to eosinophilic esophagitis.. Patient states she has an allergy to cats and dogs. Patient has cats and dogs at home. However patient thinks that this may not be the problem. No chest pain. No nausea vomiting or diaphoresis. No rash. No pruritus. No other complaints. Symptoms are moderate in intensity. No specific worsening improving factors. Patient voices no other complaints or concerns at this time. Timing/Duration: today Severity: moderate Modifying Factors: Improves With: nothing Allergies/Adverse Reactions: hydroxychloroquine sulfate [From Plaquenil] Allergy (Intermediate, Verified 11/26/20 12:22) Rash methotrexate Allergy (Intermediate, Verified 11/26/20 12:22) Rash tramadol Allergy (Intermediate, Verified 11/26/20 12:22) Hives ketorolac [From Toradol] Allergy (Verified 11/26/20 12:22) certolizumab pegol [From Cimzia] Adverse Reaction (Verified 11/26/20 12:22) simvastatin Adverse Reaction (Verified 11/26/20 12:22) Home Medications: Albuterol 17 gm IH Q4H PRN PRN 02/04/20 [History] Apixaban [Eliquis 2.5 mg Tablet] 5 mg PO BID 02/04/20 [History] Flecainide Acetate 100 mg PO DAILY 02/04/20 [History] Fluticasone Propionate [Flonase Allergy Relief] 9.9 ml NS Q12H PRN PRN 02/04/20 [History] Metoprolol Succinate 25 mg PO BID 02/04/20 [History] Omeprazole 40 mg PO BID 02/04/20 [History] SUMAtriptan succinate [Imitrex 50 mg] 50 mg PO DAILY 02/04/20 [History] ondansetron HCL [Zofran] 8 mg PO DAILY 02/04/20 [History] Codeine Phosphate/APAP #3 [Tylenol #3 Tablet] 1 ea BID 11/26/20 [History] Hx Tetanus, Diphtheria Vaccination/Date Given: No Hx Influenza Vaccination/Date Given: No Hx Pneumococcal Vaccination/Date Given: No Immunizations Up to Date: No Travel Risk - International Travel Have you traveled outside of the country in past 3 weeks: No - Coronavirus Screening Are you exhibiting any of the following symptoms?: No Close contact with a COVID-19 positive Pt in past 14-21 Days: No - Vaccine Status Have you recieved a Covid-19 vaccination: No - Review of Systems Constitutional: No Symptoms, No Fever, No Chills Eyes: No Symptoms Ears, Nose, & Throat: No Symptoms Respiratory: No Symptoms, No Cough, No Dyspnea Cardiac: No Symptoms, No Chest Pain, No Edema, No Syncope Abdominal/Gastrointestinal: No Symptoms, No Abdominal Pain, No Nausea, No Vomiting, No Diarrhea Genitourinary Symptoms: No Symptoms, No Dysuria Musculoskeletal: No Symptoms, No Back Pain, No Neck Pain Skin: No Symptoms, No Rash Neurological: No Symptoms, No Dizziness, No Focal Weakness, No Sensory Changes Psychological: No Symptoms Endocrine: No Symptoms Hematologic/Lymphatic: No Symptoms Immunological/Allergic: No Symptoms All Other Systems: Reviewed and Negative - Past Medical History Pertinent Past Medical History: Yes Neurological History: Migraines ENT History: No Pertinent History Cardiac History: Arrhythmia, Other Respiratory History: Asthma Endocrine Medical History: No Pertinent History Musculoskeletal History: Rheumatoid Arthritis GI Medical History: Diverticulitis History: No Pertinent History Psycho-Social History: No Pertinent History Female Reproductive Disorders: No Pertinent History Other Medical History: HEART MURMUR. atrial fib/flutter,RA - Past Surgical History Past Surgical History: Yes Gastrointestinal: Cholecystectomy Female Surgical History: Hysterectomy, Tubal Ligation Other Surgical History: ECTOPIC PREG. cardiac ablasion - Social History Smoking Status: Never smoker Exposure to second hand smoke: No Drug Use: none Patient Lives Alone: No - Female History Hx Last Menstrual Period: hyster Hx Now: No - Nursing Vital Signs Nursing Vital Signs: Initial Vital Signs Temperature 98.4 F 11/26/20 12:13 Pulse Rate 79 11/26/20 12:13 Respiratory Rate 20 11/26/20 12:13 Blood Pressure 143/84 11/26/20 12:13 O2 Sat by Pulse Oximetry 98 11/26/20 12:13 Pain Scale Pain Intensity 0 - Physical Exam General Appearance: no apparent distress, alert Eye Exam: PERRL/EOMI, eyes nml inspection Ears, Nose, Throat Exam: normal ENT inspection, TMs normal, pharynx normal, moist mucous membranes Neck Exam: normal inspection, non-tender, supple, full range of motion Respiratory Exam: normal breath sounds, wheezing, No respiratory distress Cardiovascular Exam: regular rate/rhythm, normal heart sounds, normal peripheral pulses Gastrointestinal/Abdomen Exam: soft, normal bowel sounds, No tenderness, No mass Back Exam: normal inspection, normal range of motion, No CVA tenderness, No vertebral tenderness Extremity Exam: normal inspection, normal range of motion, pelvis stable Neurologic Exam: alert, oriented x 3, cooperative, normal mood/affect, nml cere bellar function, nml station & gait, sensation nml, No motor deficits Skin Exam: normal color, warm, dry, No rash Lymphatic Exam: No adenopathy SpO2 Interpretation: normal SpO2: 98 O2 Delivery: Room Air - Course Nursing assessment & vital signs reviewed: Yes EKG Interpreted by Me: RATE (76), Sinus Rhythm, NORMAL AXIS, NORMAL INTERVALS - Radiology Exams Chest X-ray Interpretation: Teleradiologist Report (Normal heart lungs and bony thorax.) Ordered Tests: Active Orders 24 hr Category Date Time Status Distributor Sales Consultant STAT Care 11/26/20 12:39 Active EKG-ER Only STAT Care 11/26/20 12:38 Active IV Insertion STAT Care 11/26/20 12:38 Active Pulse Oximetry (ED) STAT Care 11/26/20 12:38 Active CHEST 1 VIEW (PORTABLE) Stat Exams 11/26/20 13:41 Completed CBC W DIFF Stat Lab 11/26/20 12:45 Completed CMP Stat Lab 11/26/20 12:45 Completed D-DIMER QUANTITATIVE Stat Lab 11/26/20 15:01 Ordered MAGNESIUM Stat Lab 11/26/20 12:45 Completed NT PRO BNP Stat Lab 11/26/20 12:45 Completed TROPONIN Q3H Lab 11/26/20 12:45 Completed TROPONIN Q3H Lab 11/26/20 15:45 Ordered TROPONIN Q3H Lab 11/26/20 18:45 Ordered TROPONIN Q3H Lab 11/26/20 21:45 Ordered TROPONIN Q3H Lab 11/27/20 00:45 Ordered UA W/RFX UR CULTURE Stat Lab 11/26/20 13:16 Completed Respiratory Therapy Assessment DAILY RT 11/26/20 12:51 Active Medication Summary Discontinued Medications Generic Name Dose Route Start Last Admin Trade Name Freq PRN Reason Stop Dose Admin Albuterol/Ipratropium 3 ml 11/26/20 12:40 11/26/20 12:48 Duoneb 0.5-3 Mg/3 Ml Neb IH 11/26/20 12:41 3 ml STAT ONE Administration Albuterol/Ipratropium Confirm 11/26/20 12:47 Duoneb 0.5-3 Mg/3 Ml Neb Administered 11/26/20 12:48 Dose 3 ml IH .STK-MED ONE Diphenhydramine HCl 25 mg 11/26/20 12:40 11/26/20 12:51 Benadryl 50 Mg/Ml IV 11/26/20 12:41 25 mg STAT ONE Administration Diphenhydramine HCl Confirm 11/26/20 12:49 Benadryl 50 Mg/Ml Administered 11/26/20 12:50 Dose 50 mg .ROUTE .STK-MED ONE Methylprednisolone Sodium Succinate 125 mg 11/26/20 13:17 11/26/20 13:22 Solu-Medrol 125 Mg IV 11/26/20 13:18 125 mg STAT ONE Administration Methylprednisolone Sodium Succinate Confirm 11/26/20 13:20 Solu-Medrol 125 Mg Administered 11/26/20 13:21 Dose 125 mg .ROUTE .STK-MED ONE Lab/Rad Data: Laboratory Result Diagrams 11/26/20 12:45 11/26/20 12:45 Laboratory Results 11/26/20 11/26/20 11/26/20 Range/Units 13:16 12:45 12:45 WBC (4.0-10.5) K/mm3 RBC (4.1-5.4) M/mm3 Hgb (12.0-16.0) gm/dl Hct (35-47) % MCV (78-100) fl MCH (26-32) pg MCHC (32-36) g/dl RDW (11.5-14.0) % Plt Count (150-450) K/mm3 MPV (7.5-11.0) fl Gran % (36.0-66.0) % Eos # (Auto) (0-0.5) Absolute Lymphs (auto) (1.0-4.6) Absolute Monos (auto) (0.0-1.3) Lymphocytes % (24.0-44.0) % Monocytes % (0.0-12.0) % Eosinophils % (0.00-5.0) % Basophils % (0.0-0.4) % Absolute Granulocytes (1.4-6.9) Basophils # (0-0.4) Sodium 138 (137-145) mmol/L Potassium 4.8 (3.5-5.1) mmol/L Chloride 106 (98-107) mmol/L Carbon Dioxide 26 (22-30) mmol/L Anion Gap 11.1 (5-15) MEQ/L BUN 15 (7-17) mg/dL Creatinine 0.64 (0.52-1.04) mg/dL Estimated GFR > 60.0 ML/MIN Glucose 115 H (74-106) mg/dL Calcium 9.1 (8.4-10.2) mg/dL Magnesium 2.1 (1.6-2.3) mg/dL Total Bilirubin 0.50 (0.2-1.3) mg/dL AST 30 (14-36) U/L ALT 17 (0-35) U/L Alkaline Phosphatase 51 (38-126) U/L Troponin I < 0.012 (0.000-0.034) ng/mL NT-Pro-B Natriuret Pep 84.4 (0-450) pg/mL Serum Total Protein 7.3 (6.3-8.2) g/dL Albumin 4.1 (3.5-5.0) g/dL Urine Color YELLOW (YELLOW) Urine Appearance SLIGHTLY CLOUDY (CLEAR) Urine pH 6.0 (5-6) Ur Specific [place] 1.026 (1.005-1.025) Urine Protein NEGATIVE (Negative) Urine Ketones NEGATIVE (NEGATIVE) Urine Blood NEGATIVE (0-5) Pramod/ul Urine Nitrite NEGATIVE (NEGATIVE) Urine Bilirubin NEGATIVE (NEGATIVE) Urine Urobilinogen NEGATIVE (0-1) mg/dL Ur Leukocyte Esterase NEGATIVE (NEGATIVE) Urine WBC (Auto) NONE (0-5) /HPF Urine RBC (Auto) NONE (0-2) /HPF U Epithel Cells (Auto) RARE (FEW) /HPF Urine Bacteria (Auto) NONE (NEGATIVE) /HPF Urine Mucus (Auto) SLIGHT (NEGATIVE) /HPF Urine Culture Reflexed NO (NO) Urine Glucose NEGATIVE (NEGATIVE) mg/dL 11/26/20 Range/Units 12:45 WBC 7.7 (4.0-10.5) K/mm3 RBC 4.39 (4.1-5.4) M/mm3 Hgb 13.4 (12.0-16.0) gm/dl Hct 39.5 (35-47) % MCV 90.0 (78-100) fl MCH 30.5 (26-32) pg MCHC 33.9 (32-36) g/dl RDW 12.8 (11.5-14.0) % Plt Count 275 (150-450) K/mm3 MPV 9.3 (7.5-11.0) fl Gran % 54.7 (36.0-66.0) % Eos # (Auto) 0.43 (0-0.5) Absolute Lymphs (auto) 2.35 (1.0-4.6) Absolute Monos (auto) 0.65 (0.0-1.3) Lymphocytes % 30.7 (24.0-44.0) % Monocytes % 8.5 (0.0-12.0) % Eosinophils % 5.6 H (0.00-5.0) % Basophils % 0.5 (0.0-0.4) % Absolute Granulocytes 4.19 (1.4-6.9) Basophils # 0.04 (0-0.4) Sodium (137-145) mmol/L Potassium (3.5-5.1) mmol/L Chloride (98-107) mmol/L Carbon Dioxide (22-30) mmol/L Anion Gap (5-15) MEQ/L BUN (7-17) mg/dL Creatinine (0.52-1.04) mg/dL Estimated GFR ML/MIN Glucose (74-106) mg/dL Calcium (8.4-10.2) mg/dL Magnesium (1.6-2.3) mg/dL Total Bilirubin (0.2-1.3) mg/dL AST (14-36) U/L ALT (0-35) U/L Alkaline Phosphatase (38-126) U/L Troponin I (0.000-0.034) ng/mL NT-Pro-B Natriuret Pep (0-450) pg/mL Serum Total Protein (6.3-8.2) g/dL Albumin (3.5-5.0) g/dL Urine Color (YELLOW) Urine Appearance (CLEAR) Urine pH (5-6) Ur Specific [place] (1.005-1.025) Urine Protein (Negative) Urine Ketones (NEGATIVE) Urine Blood (0-5) Pramod/ul Urine Nitrite (NEGATIVE) Urine Bilirubin (NEGATIVE) Urine Urobilinogen (0-1) mg/dL Ur Leukocyte Esterase (NEGATIVE) Urine WBC (Auto) (0-5) /HPF Urine RBC (Auto) (0-2) /HPF U Epithel Cells (Auto) (FEW) /HPF Urine Bacteria (Auto) (NEGATIVE) /HPF Urine Mucus (Auto) (NEGATIVE) /HPF Urine Culture Reflexed (NO) Urine Glucose (NEGATIVE) mg/dL - Progress Progress: improved Progress Note: Patient reassessed. Wheezing resolved. Chest x-ray negative. Troponin negative. Laboratory work-up essentially nonremarkable. UA negative will discharge home at this time. We will forward a prescription for albuterol inhaler and steroids. No indication for further work-up at this time. 11/26/20 14:53 Counseled pt/family regarding: lab results, diagnosis, need for follow-up, rad results - Departure Departure Disposition: Home Clinical Impression: Bronchitis Condition: Stable Critical Care Time: No Referrals: RYAN CORCORAN [Primary Care Provider] - Prescriptions: Prednisone 10 mg [Deltasone 10 mg] 40 mg PO DAILY 3 Days #12 tablet Albuterol 8 gm Mdi Hfa [Ventolin Hfa MDI] 8 gm IH Q4H #1 [email or web address]
[2020-11-26 13:16] LABS: ALBUMIN 4.1 g/dL (3.5-5.0); ALKALINE PHOSPHATASE 51 U/L (38-126); ANION GAP 11.1 MEQ/L (5-15); BLOOD UREA NITROGEN 15 mg/dL (7-17); CHLORIDE 106 mmol/L (98-107); Calcium 9.1 mg/dL (8.4-10.2); Carbon Dioxide 26 mmol/L (22-30); Creatinine 1 0.64 mg/dL (0.52-1.04); EST GLOMERULAR FILTRATION RATE > 60.0 ML/MIN; Glucose 115 mg/dL (74-106); MAGNESIUM 2.1 mg/dL (1.6-2.3); NT PRO BNP 84.4 pg/mL (0-450); Potassium 4.8 mmol/L (3.5-5.1); SGOT/AST 30 U/L (14-36); SGPT/ALT 17 U/L (0-35); SODIUM 138 mmol/L (137-145); Total Protein 7.3 g/dL (6.3-8.2)
[2020-11-26] MEDS ORDERED: solu-MEDROL 125 MG ONE (13:20)
[2020-11-26] MEDS: solu-MEDROL 125 MG IV ONE (13:22)
--- NOTE | 2020-11-26 13:58 | XRAY ---
Indication: Short of breath and wheezing. Comparison: April 23, 2020. Portable chest continues to demonstrate normal heart, lungs, and bony thorax.
[2020-11-26 14:18] LABS: Appearance SLIGHTLY CLOUDY (CLEAR); Bilirubin NEGATIVE (NEGATIVE); Blood NEGATIVE Ery/ul (0-5); Epithelial Cells RARE /HPF (FEW); Glucose NEGATIVE (NEGATIVE); Ketones NEGATIVE (NEGATIVE); Leukocyte Esterase NEGATIVE (NEGATIVE); Mucus SLIGHT /HPF (NEGATIVE); Nitrite NEGATIVE (NEGATIVE); Protein,Urine Dip NEGATIVE (Negative); Specific Gravity 1.026 (1.005-1.025); Urobilinogen NEGATIVE mg/dL (0-1)
[2020-11-26 14:58] VITALS: O2SAT 98
[2020-11-26 15:14] VITALS: BP 115/67
[2020-11-26 15:42] VITALS: PULSE 78
== END 2020-11-26 15:40 | disposition home or self-care (01) ==
LOC: ED 12:07
DX: J40 Bronchitis, not specified as acute or chronic (principal)
CPT/HCPCS: 36000; 36415; 71045; 80053; 81001; 83735; 83880; 84484; 85025; 85379; 93005; 93041; 94640; 94760; 96374; 96375; 99284; J1200; J2930; A9270-GY